=== PATIENT | female | born 1990 | race African-American/Black ===

== ENCOUNTER 2016-08-02 11:10 | Outpatient (CLI) | payer MEDICAID ==
--- NOTE | 2016-08-02 12:00 | L&D Flow Sheet ---
LD Flowsheet Datetime Report Generated by CPN: 08/02/2016 12:00 Datetime: 08/02/2016 11:36 Patient Care Comments: Pt to radiology in stable condition via wheelchair with transport (Brooke Vitrano, RN) Datetime: 08/02/2016 11:32 Uterine Activity Monitor Interventions for UA: [place] Adjusted (Brooke Vitrano, RN) Datetime: 08/02/2016 11:31 Vital Signs NBP Sys/Sue/Mean (mmHg): 116 (QS system process) : 56 (QS system process) : 79 (QS system process) Pulse: 98 (QS system process) Frequency (min): Irregular, approx q 10 min (Brooke Vitrano, RN) Pain Pain Scale: 3 (Brooke Vitrano, RN) Pain Presence: Intermittent (Brooke Vitrano, RN) Pain Type: Cramping (Brooke Vitrano, RN) Pain Location: Abdomen (Brooke Vitrano, RN) Pain Relief Measures: Comfort Measures (Brooke Vitrano, RN) Pain Coping: Talking Through Contractions (Brooke Vitrano, RN) Vaginal Exam Membrane Status: Intact (Brooke Vitrano, RN) Vaginal Bleeding: None (Brooke Vitrano, RN) Maternal Assessment Level of Consciousness: Fully Conscious (Brooke Vitrano, RN) DTR's/Clonus: DTRs 2+; No Clonus (Brooke Vitrano, RN) Headache: Temporal (Brooke Vitrano, RN) Breath Sounds, Left: Clear and Equal (Brooke Vitrano, RN) Breath Sounds, Right: Clear and Equal (Brooke Vitrano, RN) Nausea/Vomiting: Denies (Brooke Vitrano, RN) RUQ Epigastric Pain: Denies (Brooke Vitrano, RN) Datetime: 08/02/2016 11:29 Patient Care Patient Position/Activity: Left Tilt; Semi-Fowlers (Brooke Vitrano, RN) I/O Interventions: Clear Liquids Given (Brooke Vitrano, RN) Teaching Instructional Method: Verbal; Patient Instructed; Family/Support Person Instructed; Verbalized Understanding (Brooke Moody RN) Plan of Care: Plan of Care Discussed (Brooke Moody RN) Unit Routine: [place] to Room; Call [place]; Bed; Visiting Policy; Unit Personnel; Monitoring; Safety/Fall Risk Prevention; Bathroom Privileges (Brooke Moody RN)
[2016-08-02 12:30] LABS: URINE BARBITURATES SCREEN NEGATIVE; URINE METHADONE SCREEN NEGATIVE; URINE OPIATES LOW NEGATIVE; URINE PHENCYCLIDINE SCREEN NEGATIVE
[2016-08-02 12:34] LABS: APPEARANCE,URINE CLOUDY; BILIRUBIN,URINE NEGATIVE (NEGATIVE); GLUCOSE, URINE NEGATIVE (NEGATIVE); KETONES,URINE NEGATIVE (NEGATIVE); LEUKOCYTE ESTERASE,URINE LARGE (NEGATIVE); NITRITE,URINE NEGATIVE (NEGATIVE); PROTEIN,URINE 30 mg/dL (NEGATIVE); URINE SPECIFIC GRAVITY 1.026
[2016-08-02] MEDS ORDERED: RINGERS SOLUTION,LACTATED 1,500 ML IV ONE (13:11)
--- NOTE | 2016-08-02 14:00 | L&D Flow Sheet ---
LD Flowsheet Datetime Report Generated by CPN: 08/02/2016 14:00 Datetime: 08/02/2016 13:36 Monitor Interventions for FHR: Ultrasound Adjusted (Brooke Vitrano, RN) Datetime: 08/02/2016 13:34 Comments: Tracing maternal HR, movement palpable (Brooke Vitrano, RN) Datetime: 08/02/2016 13:31 NBP Sys/Sue/Mean (mmHg): 112 (QS system process) : 60 (QS system process) : 79 (QS system process) Pulse: 88 (QS system process) Datetime: 08/02/2016 13:29 Comments: Tracing maternal HR d/t pt movement (Brooke Vitrano, RN) Datetime: 08/02/2016 13:20 Patient Care Comments: GC/Chlam urine collected (Brooke Vitrano, RN) Datetime: 08/02/2016 13:18 Patient Care Comments: Wet prep collected (Brooke Heidy, RN) Datetime: 08/02/2016 13:00 IV/Blood Work: IV Started; IV Bolus Started; IV Infusing per Order; IV Bag Number @ 1 (Brooke Moody RN) Patient Care Comments: 18 G R wrist site WNL LR bolusing per order (Brooke Moody, RN) Datetime: 08/02/2016 12:55 Instructional Method: Verbal; Patient Instructed; Family/Support Person Instructed; Verbalized Understanding (Brooke Moody RN) Plan of Care: Plan of Care Discussed (Brooke Moody RN) Teaching Comments: Reviewed results and provider orders. Reviewed THC cessation and pt verbalized understanding. (Brooke Moody RN) Datetime: 08/02/2016 12:44 Communication Comments: Called Bola Lambert CNM, report given to include EGA 29.5, , pt complaints, nursing assessment, pt history, cervical length, urine results, VS, toco tracing, FHTs. Orders received for 1.5 L LR bolus x1 now, collect wet prep, collect GC/Chlamydia urine. (Brooke Moody RN) Datetime: 08/02/2016 12:31 NBP Sys/Sue/Mean (mmHg): 113 (QS system process) : 59 (QS system process) : 78 (QS system process) Pulse: 93 (QS system process) Datetime: 08/02/2016 12:02 NBP Sys/Sue/Mean (mmHg): 116 (QS system process) : 64 (QS system process) : 83 (QS system process) Pulse: 102 (QS system process) Datetime: 08/02/2016 12:00 Patient Position/Activity: Left Tilt; Semi-Fowlers (Brooke Moody RN) I/O Interventions: Clear Liquids Given (Brooke Moody RN) Patient Care Comments: Pt returned from Radiology in stable condition (Brooke Moody RN)
[2016-08-02] MEDS ORDERED: SODIUM CHLORIDE IV ONE ×2 (14:15→14:18)
[2016-08-02] MEDS ORDERED: METRONIDAZOLE IV ONE ×2 (14:15→14:18)
[2016-08-02 15:47] LABS: CHLAM PCR NOT DETECTED (NOT DETECT)
--- NOTE | 2016-08-02 16:00 | L&D Flow Sheet ---
LD Flowsheet Datetime Report Generated by CPN: 08/02/2016 16:00 Datetime: 08/02/2016 15:47 Communication Comments: Monitors removed. IV discontinued. D/C instructions given. Reviewed kick counts and instructed pt to follow up at [facility] on 3/2. (Marilynn Campa, RN) Datetime: 08/02/2016 15:45 Communication Comments: D/C order received per Dr. Angel (Marilynn Campa, RN) Datetime: 08/02/2016 15:31 NBP Sys/Sue/Mean (mmHg): 127 (QS system process) : 69 (QS system process) : 87 (QS system process) Pulse: 107 (QS system process) Medication Comments: Flagyl 500 mg/100 mL RTU 4 of 4 hung (Brooke Vitrano, RN) Datetime: 08/02/2016 15:30 Monitor Mode: External (Marilynn Campa RN) Frequency (min): occasional (Marilynn Campa RN) Quality: Mild (Marilynn Campa RN) Resting Tone (Palpate): Relaxed (Marilynn Campa RN) Monitor Mode: External US (Marilynn Campa RN) FHR Baseline Rate : 145 (Marilynn Campa RN) Variability: Moderate 6-25 bpm (Marilynn Campa RN) Accelerations: 10X10 (Marilynn Campa RN) Decelerations: None (Marilynn Campa RN) Datetime: 08/02/2016 15:15 Monitor Interventions for FHR: Ultrasound Adjusted (Brooke Vitrano, RN) Datetime: 08/02/2016 15:01 NBP Sys/Sue/Mean (mmHg): 119 (QS system process) : 61 (QS system process) : 82 (QS system process) Pulse: 106 (QS system process) Datetime: 08/02/2016 15:00 Monitor Mode: External; Palpation (Brooke Vitrano, RN) Frequency (min): Occasional (Brooke Vitrano, RN) Quality: Mild (Brooke Vitrano, RN) Duration (sec): 40-50 (Brooke Vitrano, RN) Resting Tone (Palpate): Relaxed (Brooke Vitrano, RN) Monitor Mode: External US (Brooke Vitrano, RN) FHR Baseline Rate : 140 (Brooke Vitrano, RN) Variability: Moderate 6-25 bpm (Brooke Vitrano, RN) Accelerations: 10X10 (Brooke Vitrano, RN) Decelerations: None (Brooke Vitrano, RN) Datetime: 08/02/2016 14:36 NBP Sys/Sue/Mean (mmHg): 132 (QS system process) : 69 (QS system process) : 91 (QS system process) Pulse: 92 (QS system process) Datetime: 08/02/2016 14:32 I/O Interventions: Up to BR (Brooke Vitrano, RN) Datetime: 08/02/2016 14:31 NBP Sys/Sue/Mean (mmHg): 97 (QS system process) : 54 (QS system process) : 68 (QS system process) Pulse: 90 (QS system process) Datetime: 08/02/2016 14:30 Monitor Mode: External (Brooke Vitrano, RN) Frequency (min): Occasional (Brokoe Vitrano, RN) Quality: Mild (Brooke Vitrano, RN) Duration (sec): 50-60 (Brooke Vitrano, RN) Resting Tone (Palpate): Relaxed (Brooke Vitrano, RN) Monitor Mode: External US (Brooke Vitrano, RN) FHR Baseline Rate : 140 (Brooke Vitrano, RN) Variability: Moderate 6-25 bpm (Brooke Vitrano, RN) Accelerations: None (Brooke Vitrano, RN) Decelerations: None (Brooke Vitrano, RN) Datetime: 08/02/2016 14:22 Medication Comments: Flagyl 500mg/100 mL hung; RTU 1 of 4 for Flagyl 2000 mg (Brooke Vitrano, RN) Datetime: 08/02/2016 14:19 Monitor Interventions for FHR: Ultrasound Adjusted (Brooke Vitrano, RN) Instructional Method: Verbal; Patient Instructed; Family/Support Person Instructed; Verbalized Understanding (Brooke Vitrano, RN) Teaching Comments: Reviewed provider orders and lab results. Questions answered. Pt verbalized understanding (Brooke Vitrano, RN) Datetime: 08/02/2016 14:18 IV/Blood Work: New IV Bag Hung; IV Bag Number @ 2 (Brooke Vitrano, RN) Patient Care Comments: Infusing per order (Brooke Vitrano, RN) Datetime: 08/02/2016 14:15 Communication Comments: Reviewed positive Trichomonas results with Dr. Ortiz. Orders received to administer Flagyl 2 gm IV x1 now. (Brooke Vitrano, RN) Datetime: 08/02/2016 14:01 NBP Sys/Sue/Mean (mmHg): 113 (QS system process) : 68 (QS system process) : 86 (QS system process) Pulse: 100 (QS system process) Datetime: 08/02/2016 14:00 Monitor Mode: External; Palpation (Brooke Vitrano, RN) Frequency (min): Occasional (Brooke Vitrano, RN) Quality: Mild (Brooke Vitrano, RN) Duration (sec): 50-60 (Brooke Vitrano, RN) Resting Tone (Palpate): Relaxed (Brooke Moody RN) Monitor Mode: External US (Brooke Moody RN) FHR Baseline Rate : 140 (Brooke Moody RN) Variability: Moderate 6-25 bpm (Brooke Moody RN) Accelerations: 10X10 (Brooke Moody RN) Decelerations: None (Brooke Moody RN)
== END 2016-08-02 15:56 | disposition home or self-care (01) ==
LOC: LC 11:10
PROVIDERS: ATTEND Obstetrics & Gynecology
PROC: 4A1HXCZ Monitoring of Products of Conception, Cardiac Rate, External Approach (ICD-10-PCS; principal; 2016-08-02)
DX: O98.813 Other maternal infectious and parasitic diseases complicating pregnancy, third trimester (principal); A59.9 Trichomoniasis, unspecified; Z3A.29 29 weeks gestation of pregnancy
CPT/HCPCS: 76815; 80307; 81001; 87210; 87491; 87591

== ENCOUNTER 2016-08-07 22:03 | Outpatient (CLI) | payer MEDICAID ==
[2016-08-07] MEDS ORDERED: HYDROXYZINE PAMOATE 50 MG CAPSULE PO ONE (22:42)
[2016-08-07] MEDS ORDERED: RINGERS SOLUTION,LACTATED 1,000 ML IV ONE (22:43)
[2016-08-07] MEDS ORDERED: HYDROXYZINE PAMOATE 50 MG CAPSULE ONE (22:43)
[2016-08-08 00:26] LABS: APPEARANCE,URINE SLIGHTLY-CLOUDY; BILIRUBIN,URINE NEGATIVE (NEGATIVE); GLUCOSE, URINE NEGATIVE (NEGATIVE); KETONES,URINE NEGATIVE (NEGATIVE); LEUKOCYTE ESTERASE,URINE TRACE (NEGATIVE); NITRITE,URINE NEGATIVE (NEGATIVE); PROTEIN,URINE NEGATIVE (NEGATIVE); URINE SPECIFIC GRAVITY 1.016; UROBILINOGEN,URINE NEGATIVE mg/dL (<2.0)
[2016-08-08 00:43] LABS: URINE BARBITURATES SCREEN NEGATIVE; URINE METHADONE SCREEN NEGATIVE; URINE OPIATES LOW NEGATIVE; URINE PHENCYCLIDINE SCREEN NEGATIVE
--- NOTE | 2016-08-08 04:46 | L&D General Admission ---
General Admit Datetime Report Generated by CPN: 08/08/2016 04:45 INFORMATION Patient Age: 23 (04/04/2012 09:53:QS system process) EDC: 10/13/2016 00:00 (08/02/2016 11:20:Brooke Moody RN) : 3 (08/02/2016 11:20:Brooke Moody RN) Para: 2 (08/02/2016 15:57:Marilynn Campa RN) Para: 2 (08/02/2016 11:20:Brooke Moody RN) Term: 2 (08/02/2016 11:20:Brooke Moody RN) : 0 (08/02/2016 11:20:Brooke Moody RN) Spontaneous Abortions: 0 (08/02/2016 11:20:Brooke Moody RN) Induced Abortions: 0 (08/02/2016 11:20:Brooke Moody RN) Livin (08/02/2016 11:20:Brooke Moody RN) Cesareans: 0 (08/02/2016 11:20:Brooke Moody RN) VBACs: 0 (08/02/2016 11:20:Brooke Moody RN) Ectopic: 0 (08/02/2016 11:20:Brooke Moody RN) Multiple Births: 0 (08/02/2016 11:20:Brooke Moody RN) Baby, Number in Womb: 1 (08/02/2016 15:57:Marilynn Campa RN) Baby, Number in Womb: 1 (08/02/2016 11:20:Brooke Moody RN) CARE Primary Mud Boss: [facility] (08/02/2016 11:20:Brooke Moody RN) Month of 1st Visit: 04/2016 (08/02/2016 11:20:Brooke Moody RN) Adequate Care: No (08/02/2016 11:20:Brooke Moody RN) Prepregnancy Weight (lb): 265 (08/02/2016 11:20:Brooke Moody RN) Prepregnancy Weight (kg): 120.5 (08/02/2016 11:20:QS system process) Height (in): 64 (08/02/2016 11:53:QS system process) Height (in): 66 (08/02/2016 11:10:QS system process) Height (in): 66 (02/18/2016 11:34:QS system process) Height (in): 66 (12/17/2015 15:34:QS system process) Height (in): 66 (10/21/2015 13:10:QS system process) Height (in): 66 (04/04/2014 09:53:QS system process) ALLERGIES Medication Allergy: No (08/02/2016 11:20:Brooke Moody RN) Medication Allergies: No Known Allergies (08/02/2016) (08/02/2016 11:52:QS system process) Medication Allergies: No Known Allergies (10/20/2015) (10/21/2015 13:10:QS system process) Medication Allergies: No Known Allergies (01/15/2014) (04/04/2014 09:53:QS system process) Latex Allergy: No Latex Allergies (08/02/2016 11:20:Brooke Moody RN) Food Allergies: N/A (08/02/2016 11:20:Brooke Moody RN) Environmental Allergies: N/A (08/02/2016 11:20:Brooke Moody RN) COMMUNICATION Primary Language: Kosovan (08/02/2016 11:20:Brooke Moody RN) Medical Tx Preferred Language: Kosovan (08/02/2016 11:20:Brooke Moody RN) DEMOGRAPHICS Address: [address] [place] [address] (08/02/2016 11:10:QS system process) Address: [address] [place] [address] (12/17/2015 15:34:QS system process) Address: [address] [place] [address] (04/04/2014 09:53:QS system process) Zipcode: [facility] (04/04/2014 09:53:QS system process) Home (08/02/2016 11:10:QS system process) Home (04/04/2014 09:53:QS system process) SSN: [id number] (04/04/2014 09:53:QS system process) Next of Kin Name: SHARAN ARTEAGA (08/02/2016 11:15:QS system process) Next of Kin Name: SHARAN ROGERS (04/04/2014 09:53:QS system process) Next of Kin (04/04/2014 09:53:QS system process) Next of Kin Relationship: MO (04/04/2014 09:53:QS system process) Date of : 1990 (04/04/2014 09:53:QS system process) Marital Status: Single (04/04/2014 09:53:QS system process) Sex: Female (04/04/2014 09:53:QS system process) Race: (04/04/2014 09:53:QS system process) Ethnicity: Non- or (10/21/2015 13:10:QS system process) Latter Day: Orthodox (04/04/2014 09:53:QS system process) DRUG AND ALCOHOL USE Alcohol: No (08/02/2016 11:20:Carmen Harrison RN) Cigarettes: Never Smoker. [id number] (08/02/2016 11:20:Carmen Harrison RN) Marijuana: No (08/02/2016 11:20:Carmen Harrison RN) Marijuana Comments: pt denies use. pt states that she is only around people who use. 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[facility] [employer] (08/02/2016 11:20:Carmen Harrison RN) Pain Management Plans: None (08/02/2016 11:20:Carmen Harrison RN) Plans for Labor and Delivery: None (08/02/2016 11:20:Carmen Harrison RN) Support Person: Sharan (08/02/2016 11:20:Carmen Harrison RN) Support Person Relationship: Mother (08/02/2016 11:20:Carmen Harrison RN) LIVING SITUATION/DISCHARGE PLAN Living Arrangements: House (08/02/2016 11:20:Carmen Hrarison RN) Adequate Access to:: Electric; Heat; Refrigeration; Plumbing/Running water; Phone; Transportation (08/02/2016 11:20:Carmen Harrison RN) WIC Program: Yes (08/02/2016 11:20:Carmen Harrison RN) Discharge Jump Roll Operator Person: Sharan (08/02/2016 11:20:Carmen Harrison RN) Person to Help after Discharge: Sharan (08/02/2016 11:20:Carmen Harrison RN) Currently Using Commun Resources: No (08/02/2016 11:20:Carmen Harrison RN) Outside Agency/In Process Inspector: No (08/02/2016 11:20:Carmen Harrison RN) Car Seat for Discharge: No (08/02/2016 11:20:Carmen Harrison RN) Adoption Requested: No (08/02/2016 11:20:Carmen Harrison RN) Pt Contact w/infant Post : N/A (08/02/2016 11:20:Carmen Harrison RN) LABS Blood Type: O Positive (08/02/2016 11:20:Brooke Moody RN) Antibody Screen: Negative (08/02/2016 11:20:Brooke Moody RN) Rho(G) this : Not Applicable (08/02/2016 11:20:Brooke Moody RN) Hemoglobin: 11.0 L (03/04/2016 11:16:QS system process) Hematocrit: 32.7 L (03/04/2016 11:16:QS system process) MCV: 83 (03/04/2016 11:16:QS system process) Gonorrhea: Negative (08/02/2016 11:20:Carmen Harrison RN) Chlamydia: Negative (08/02/2016 11:20:Carmen Harrison RN) RPR/VDRL: Nonreactive (08/02/2016 11:20:Brooke Moody RN) HIV Exposure Test: Negative (08/02/2016 11:20:Brooke Moody RN) Hepatitis B: Negative (08/02/2016 11:20:Brooke Moody RN) Rubella: Immune (08/18/2015 10:17:Brooke Moody RN) Rubella Titer: 39.70 (08/18/2015 10:17:QS system process) OB/PREVIOUS HISTORY History of Previous : No (08/02/2016 11:20:Brooke Moody RN) History of Gestational Diabetes: No (08/02/2016 11:20:Brooke Moody RN) History of PIH: No (08/02/2016 11:20:Brooke Moody RN) History of Incompetent Cervix: No (08/02/2016 11:20:Brooke Moody RN) History of Placenta Previa/Abrup: No (08/02/2016 11:20:Brooke Moody RN) History of Macrosomia: No (08/02/2016 11:20:Brooke Moody RN) History of IUGR: No (08/02/2016 11:20:Brooke Moody RN) History of Hemorrhage: No (08/02/2016 11:20:Brooke Moody RN) History of Loss/Stillborn: No (08/02/2016 11:20:Brooke Moody RN) History of : No (08/02/2016 11:20:Brooke Moody RN) History of D (Rh) Sensitization: No (08/02/2016 11:20:Brooke Moody RN) History Recurrent Loss/Stillborn: No (08/02/2016 11:20:Brooke Moody RN) History Depression/PP Depression: Yes (08/02/2016 11:20:Brooke Moody RN) History of Uterine Anomaly/SYO: No (08/02/2016 11:20:Brooke Moody RN) History of Infertility: No (08/02/2016 11:20:Brooke Moody RN) History of ART Treatment: No (08/02/2016 11:20:Brooke Moody RN) History of SOY: No (08/02/2016 11:20:Brooke Moody RN) Comments Obstetrical History: G1: 2011 38 week baby boy, 10-15 hour labor, 6 lb 5 oz G2: 2012 40.5 week baby girl, 9 hours labor, 7 lb 3 oz G3: Current, Late PNC 14 weeks History depression (08/02/2016 11:20:Brooke Moody RN) MEDICAL HISTORY Med Hx Diabetes: No (08/02/2016 11:20:Brooke Moody RN) Med Hx Hypertension: No (08/02/2016 11:20:Brooke Moody RN) Med Hx Heart Disease: No (08/02/2016 11:20:Brooke Moody RN) Med Hx Autoimmune Disorder: Yes (08/02/2016 11:20:Brooke Moody RN) Med Hx Kidney Disease/UTI: No (08/02/2016 11:20:Brooke Moody RN) Med Hx Neurologic/Epilepsy: No (08/02/2016 11:20:Brooke Moody RN) Med Hx Psychiatric Disorders: Yes (08/02/2016 11:20:Brooke Moody RN) Med Hx Hepatitis/Liver Disease: No (08/02/2016 11:20:Brooke Moody RN) Med Hx Varicosities/Phlebitis: No (08/02/2016 11:20:Brooke Moody RN) Med Hx Thyroid Dysfunction: No (08/02/2016 11:20:Brooke Moody RN) Med Hx Trauma/Violence: No (08/02/2016 11:20:Brooke Moody RN) Med Hx Blood Transfusion: Yes (08/02/2016 11:20:Brooke Moody RN) Med Hx Pulmonary (Asthma,TB): No (08/02/2016 11:20:Brooke Moody RN) Med Hx Breast: No (08/02/2016 11:20:Brooke Moody RN) Med Hx REINSURANCE CLAIMS ANALYST Surgery: No (08/02/2016 11:20:Brooke Moody RN) Med Hx Hospitalization/Surgery: Yes (08/02/2016 11:20:Brooke Moody RN) Med Hx Anesthetic Complications: No (08/02/2016 11:20:Brooke Moody RN) Med Hx Abnormal Pap Smear: No (08/02/2016 11:20:Brooke Moody RN) Other Medical Diseases: No (08/02/2016 11:20:Brooke Moody RN) Med Hx Significant Family Hx: No (08/02/2016 11:20:Brooke Moody RN) Details of Med/Surg Hx: UTI: Ages 5 and 9 Psychiatric/Depression: History depression, Homicidal ideation, Suicidal ideation Blood Transfusion: At 1993 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 (08/02/2016 11:20:Brooke Moody RN) INFECTIOUS HISTORY Inf Hx Gonorrhea: No (08/02/2016 11:20:Brooke Moody RN) Inf Hx Chlamydia: Yes (08/02/2016 11:20:Brooke Moody RN) Inf Hx Syphilis: No (08/02/2016 11:20:Brooke Moody RN) Inf Hx HIV/AIDS: No (08/02/2016 11:20:Brooke Moody RN) Inf Hx Human Papilloma Virus: No (08/02/2016 11:20:Brooke Moody RN) Inf Hx Pt/Partner Genital Herpes: No (08/02/2016 11:20:Brooke Moody RN) Inf Hx Tuberculosis/Exposure: No (08/02/2016 11:20:Brooke Moody RN) Inf Hx Hepatitis B,C: No (08/02/2016 11:20:Brooke Moody RN) Inf Hx Rash or Viral Illness: No (08/02/2016 11:20:Brooke Moody RN) Details of Infectious Hx: Chlamydia: Positive with current , HECTOR negative (08/02/2016 11:20:Brooke Moody RN) GENETIC HISTORY Gen Hx Age >=35 at THOMAS: No (08/02/2016 11:20:Brooke Moody RN) Gen Hx Thalassemia: No (08/02/2016 11:20:Brooke Moody RN) Gen Hx Congenital Heart Defect: No (08/02/2016 11:20:Brooke Moody RN) Gen Hx Neural Tube Defect: No (08/02/2016 11:20:Brooke Moody RN) Gen Hx Down's Syndrome: No (08/02/2016 11:20:Brooke Moody RN) Gen Hx Negro-Sachs: No (08/02/2016 11:20:Brooke Moody RN) Gen Hx Carolann: No (08/02/2016 11:20:Brooke Moody RN) Gen Hx Familial Dysautonomia: No (08/02/2016 11:20:Brooke Moody RN) Gen Hx Sickle Cell Disease/Trait: Yes (08/02/2016 11:20:Brooke Moody RN) Gen Hx Hemophilia/Blood Disorder: No (08/02/2016 11:20:Brooke Moody RN) Gen Hx Muscular Dystrophy: No (08/02/2016 11:20:Brooke Moody RN) Gen Hx Cystic Fibrosis: No (08/02/2016 11:20:Brooke Moody RN) Gen Hx Huntingtons Chorea: No (08/02/2016 11:20:Brooke Moody RN) Gen Hx Mental Retardation/Autism: Yes (08/02/2016 11:20:Brooke Moody RN) Gen Hx Tested for Fragile X: No (08/02/2016 11:20:Brooke Moody RN) Gen Hx Other Inher/Chromosomal: No (08/02/2016 11:20:Brooke Moody RN) Gen Hx Maternal Metabolic DO: No (08/02/2016 11:20:Brooke Moody RN) Gen Hx Pt Father or FOB Defect: No (08/02/2016 11:20:Brooke Moody RN) Gen Hx Other Genetic History: No (08/02/2016 11:20:Brooke Moody RN) Gen Hx Drugs/Meds since LMP: No (08/02/2016 11:20:rBooke Moody RN) Details of Genetic History: Sickle Cell: Carries trait Mental Retardation/Mental Illness: Family history of both (08/02/2016 11:20:Brooke Moody RN)
--- NOTE | 2016-08-08 04:46 | L&D Admission Assessment ---
LD ADM ASMT Datetime Report Generated by CPN: 08/08/2016 04:45 Assessment Type: Triage (08/07/2016 22:16:Carmen Harrison RN) Pain Scale: 5 (08/07/2016 22:16:Carmen Harrison RN) Pain Presence: Intermittent (08/07/2016 22:16:Carmen Harrison RN) Pain Type: Contraction (08/07/2016 22:16:Carmen Harrison RN) Pain Location: Abdomen (08/07/2016 22:16:Carmen Harrison RN) Pain Related to Contraction: Yes (08/07/2016 22:16:Carmen Harrison RN) Pain Comments: pt unaware that contraction occured (08/07/2016 23:37:Carmen Harrison RN) Frequency (min): none (08/08/2016 00:44:Carmen Harrison RN) Frequency (min): irregular (08/08/2016 00:30:Carmen Harrison RN) Frequency (min): irregular (08/08/2016 00:00:Carmen Harrison RN) Frequency (min): 3-4 (08/07/2016 23:00:Carmen Harrison RN) Frequency (min): 3-4 (08/07/2016 22:30:Carmen Harrison RN) Frequency (min): 2-3 (08/07/2016 22:16:Carmen Harrison RN) Duration (sec): 50-70 (08/08/2016 00:30:Carmen Harrison RN) Duration (sec): 50-90 (08/08/2016 00:00:Carmen Harrison RN) Duration (sec): 50-70 (08/07/2016 23:00:Carmen Harrison RN) Duration (sec): 50-70 (08/07/2016 22:30:Carmen Harrison RN) Quality: Mild (08/08/2016 00:30:Carmen Harrison RN) Quality: Mild (08/08/2016 00:00:Carmen Harrison RN) Quality: Mild (08/07/2016 23:00:Carmen Harrison RN) Quality: Mild (08/07/2016 22:30:Carmen Harrison RN) Pattern: Normal: <= 5 Contractions in 10 Minutes (08/08/2016 00:30:Carmen Harrison RN) Pattern: Normal: <= 5 Contractions in 10 Minutes (08/08/2016 00:00:Carmen Harrison RN) Pattern: Normal: <= 5 Contractions in 10 Minutes (08/07/2016 23:00:Carmen Harrison RN) Pattern: Normal: <= 5 Contractions in 10 Minutes (08/07/2016 22:30:Carmen Harrison RN) Resting Tone [place]: Relaxed (08/08/2016 00:30:Carmen Harrison RN) Resting Tone [place]: Relaxed (08/08/2016 00:00:Carmen Harrison RN) Resting Tone [place]: Relaxed (08/07/2016 23:00:Carmen Harrison RN) Resting Tone [place]: Relaxed (08/07/2016 22:30:Carmen Harrison RN) Contraction Comments: uterine irritability (08/08/2016 00:44:Carmen Harrison RN) Membranes Status: Intact (08/07/2016 22:16:Carmen Harrison RN) Level of Consciousness: Fully Conscious (08/07/2016 22:16:Carmen Harrison RN) DTR's/Clonus: DTRs 1+ (08/07/2016 22:16:Carmen Harrison RN) Headache: Frontal (Annotations: pt c/o of h/a through ) (08/07/2016 22:16:Carmen Harrison RN) Dizziness: No (08/07/2016 22:16:Carmen Harrison RN) Blurred Vision: Yes (Annotations: started today) (08/07/2016 22:16:Carmen Harrison RN) Extremity Numbness/Tingling : None (08/07/2016 22:16:Carmen Harrison RN) Extremity Movement: Full Range of Motion (08/07/2016 22:16:Carmen Harrison RN) Heart Rhythm: Regular (08/07/2016 22:16:Carmen Harrison RN) Nailbeds: [place] (08/07/2016 22:16:Carmen Harrison RN) Capillary Refill: Less than 3 Seconds (08/07/2016 22:16:Carmen Harrison RN) Lower Extremities Edema Degree: None (08/07/2016 22:16:Carmen Harrison RN) Upper Extremities Edema: None (08/07/2016 22:16:Carmen Harrison RN) Upper Extremities Edema Degree: None (08/07/2016 22:16:Carmen Harrison RN) Facial Edema: None (08/07/2016 22:16:Carmen Harrison RN) Renee's Sign Left Leg: Negative (08/07/2016 22:16:Carmen Harrison RN) Renee's Sign Right Leg: Negative (08/07/2016 22:16:Carmen Harrison RN) DVT Risk Age: Age less than 41 years (08/07/2016 22:16:Carmen Harrison RN) DVT Risk BMI: BMI<31 (08/07/2016 22:16:Carmen Harrison RN) DVT Risk Surgery: None Applicable (08/07/2016 22:16:Carmen Harrison RN) DVT Risk Other: None Applicable (08/07/2016 22:16:Carmen Harrison RN) DVT Risk Total: 0 (08/07/2016 22:16:QS system process) DVT Risk Text: Low Risk (<10%) No specific measures, early ambulation (08/07/2016 22:16:QS system process) Respiratory Effort: Unlabored (08/07/2016 22:16:Carmen Harrison RN) Breath Sounds, Left: Clear and Equal (08/07/2016 22:16:Carmen Harrison RN) Breath Sounds, Right: Clear and Equal (08/07/2016 22:16:Carmen Harrison RN) Cough Productivity: None (08/07/2016 22:16:Carmen Harrison RN) Nausea/Vomiting: Present (Annotations: with ctx) (08/07/2016 22:16:Carmen Harrison RN) Bowel Sounds: Normoactive (08/07/2016 22:16:Carmen Harrison RN) Bowel Patterns: Soft, Formed Stool (08/07/2016 22:16:Carmen Harrison RN) Hemorrhoids: Present (08/07/2016 22:16:Carmen Harrison RN) Diet Type: Regular diet (08/07/2016 22:16:Carmen Harrison RN) Last Meal: 08/07/2016 15:00 (08/07/2016 22:16:Carmen Harrison RN) Bladder: Nondistended (08/07/2016 22:16:Carmen Harrison RN) Frequency of Urination: No (08/07/2016 22:16:Carmen Harrison RN) Urination Burning: No (08/07/2016 22:16:Carmen Harrison RN) CVA Tenderness: No (08/07/2016 22:16:Carmen Harrison RN) Vaginal Bleeding: None (08/07/2016 22:16:Carmen Harrison RN) Vaginal Discharge Amount: None (08/07/2016 22:16:Carmen Harrison RN) Vaginal Discharge Color: N/A (08/07/2016 22:16:Carmen Harrison RN) Vaginal Discharge Character: None (08/07/2016 22:16:Carmen Harrison RN) Skin Color: Normal for Race (08/07/2016 22:16:Carmen Harrison RN) Skin Temperature: Warm (08/07/2016 22:16:Carmen Harrison RN) Skin Moisture: Dry (08/07/2016 22:16:Carmen Harrison RN) [place] Scale Sensory Perception: No Impairment- Responds to verbal commands. Has no sensory deficit which would limit ability to feel or voice pain or discomfort (08/07/2016 22:16:Carmen Harrison RN) Neto Scale Moisture: Rarely Moist- Skin is usually dry. Linen only requires changing at routine intervals (08/07/2016 22:16:Carmen Harrison RN) Neto Scale Activity: Walks Frequently- Walks outside the room at least twice a day and inside room at least every 2 hours during the day. (08/07/2016 22:16:Carmen Harrison RN) Neto Scale Mobility: No Limitations- Makes major and frequent changes in position without assistance (08/07/2016 22:16:Carmen Harrison RN) Neto Scale Nutrition: Excellent- Eats most of every meal. Never refuses a meal. Usually eats a total of 4 or more servings of meat and dairy products. Occasionally eats between meals. Does not require supplementation (08/07/2016 22:16:Carmen Harrison RN) Neto Scale Friction and Shear: No Apparent Problem- Moves in bed and in chair independently and has sufficient muscle strength to lift up completely during move. Maintains good position in bed or chair at all times (08/07/2016 22:16:Carmen Harrison RN) Neto Scale Total: 23 (08/07/2016 22:16:QS system process) Neto Scale Risk: No Risk of Pressure Ulcer Noted at this Time (08/07/2016 22:16:QS system process) Family Support: Significant Other supportive, at bedside frequently; Family supportive (08/07/2016 22:16:Carmen Harrison RN) Emotional State: Calm/Relaxed (08/07/2016 22:16:Carmen Harrison RN) Call [place] Within Reach: Yes (08/07/2016 22:16:Carmen Harrison RN) Side Rails Up: Yes (08/07/2016 22:16:Carmen Harrison RN) Bed Wheels Locked: Yes (08/07/2016 22:16:Carmen Harrison RN) Arm Bands Present: Yes (08/07/2016 22:16:Carmen Harrison RN) Isolation: [place] (08/07/2016 22:16:Carmen Harrison RN) Fall Risk History of Falling: (0) No (08/07/2016 22:16:Carmen Harrison RN) Fall Risk Secondary Diagnosis: (0) No (08/07/2016 22:16:Carmen Harrison RN) Fall Risk Ambulatory Aid: (0) None/Bedrest/Wheelchair/Nurse Assist (08/07/2016 22:16:Carmen Harrison RN) Fall Risk IV Therapy: (0) No (08/07/2016 22:16:Carmen Harrison RN) Fall Risk Gait: (0) Normal/Bedrest/Immobile (08/07/2016 22:16:Carmen Harrison RN) Fall Risk Mental Status: (0) Oriented to Own Ability (08/07/2016 22:16:Carmen Harrison RN) Fall Risk Score: 0 (08/07/2016 22:16:QS system process) Fall Risk Score Definition: No Risk: No action required (08/07/2016 22:16:QS system process) Recent Exp Communicable Disease: No (08/07/2016 22:16:Carmen Harrison RN) Cough or Fever: No (08/07/2016 22:16:Carmen Harrison RN) Foreign Travel Past 10 Days: No (08/07/2016 22:16:Carmen Harrison RN) Open Wounds or Sores: No (08/07/2016 22:16:Carmen Harrison RN) Prior Antibiotic Resistance Tx: No (08/07/2016 22:16:Carmen Harrison RN) Cultures Obtained: Not Applicable (08/07/2016 22:16:Carmen Harrison RN) Isolation Initiated: No (08/07/2016 22:16:Carmen Harrison RN) Pt/Family Education: Not Applicable (08/07/2016 22:16:Carmen Harrison RN) FHR Baseline Rate (bpm) Baby A: 140 (08/08/2016 00:44:Carmen Harrison RN) FHR Baseline Rate (bpm) Baby A: 140 (08/08/2016 00:30:Carmen Harrison RN) FHR Baseline Rate (bpm) Baby A: 140 (08/08/2016 00:00:Carmen Harrison RN) FHR Baseline Rate (bpm) Baby A: 140 (08/07/2016 23:00:Carmen Harrison RN) FHR Baseline Rate (bpm) Baby A: 140 (08/07/2016 22:30:Carmen Harrison RN) Variability Baby A: Moderate 6-25 bpm (08/08/2016 00:44:Carmen Harrison RN) Variability Baby A: Moderate 6-25 bpm (08/08/2016 00:30:Carmen Harrison RN) Variability Baby A: Moderate 6-25 bpm (08/08/2016 00:00:Carmen Harrison RN) Variability Baby A: Moderate 6-25 bpm (08/07/2016 23:00:Carmen Harrison RN) Variability Baby A: Moderate 6-25 bpm (08/07/2016 22:30:Carmen Harrison RN) Accelerations Baby A: 10X10 (08/08/2016 00:44:Carmen Harrison RN) Accelerations Baby A: 10X10 (08/08/2016 00:30:Carmen Harrison RN) Accelerations Baby A: 15X15 (08/08/2016 00:00:Carmen Harrison RN) Accelerations Baby A: 10X10 (08/07/2016 23:00:Carmen Harrison RN) Decelerations Baby A: None (08/08/2016 00:44:Carmen Harrison RN) Decelerations Baby A: None (08/08/2016 00:30:Carmen Harrison RN) Decelerations Baby A: None (08/08/2016 00:00:Carmen Harrison RN) Decelerations Baby A: None (08/07/2016 23:00:Carmen Harrison RN) Decelerations Baby A: None (08/07/2016 22:30:Carmen Harrison RN)
--- NOTE | 2016-08-08 04:46 | L&D Discharge Summary ---
OB Discharge Summary Datetime Report Generated by CPN: 08/08/2016 04:45 DISCHARGE DIAGNOSIS Diagnosis/Symptoms: False Labor Diagnoses/Symptoms Other: Trichomoniasis Gestation: 30.3 Number of Babies in Womb: 1 Parity: 2 DIET/ACTIVITY/RESTRICTIONS Diet: Regular Activity: Normal Activity TEACHING/INSTRUCTIONS/REFERRALS Instructions Given To: PT/family Instructions Understood: Patient Verbalized Understanding; Support Person Verbalized Understanding Referrals: None Educational Materials- Other: Kick Counts, Trichomoniasis DISCHARGE INFORMATION Discharged AMA: No Discharge Date/Time: 08/02/2016 15:56 Discharged To: Home Discharge Provider Name: Dr Ortiz Accompanied By: family Discharge Method: Ambulatory Condition: Stable FOLLOW UP INFORMATION Follow Up With: [facility] Follow Up On: 3-5 Days Follow Up Phone Number: [facility] -
--- NOTE | 2016-08-08 04:46 | L&D Current Admission ---
Current Admit Datetime Report Generated by CPN: 08/08/2016 04:45 ADMISSION INFORMATION Chief Complaint: Contractions (08/07/2016 22:16:Carmen Harrison RN) Chief Complaint: Contractions; Uterine Cramping (08/02/2016 11:31:Brooke Moody RN)
--- NOTE | 2016-08-08 04:46 | L&D Flow Sheet ---
LD Flowsheet Datetime Report Generated by CPN: 08/08/2016 04:45 Datetime: 08/08/2016 00:50 Additional Nursing Comments: pt left floor via wheelchair (Carmen Harrison, AYE) Datetime: 08/08/2016 00:44 Monitor Mode: External; Palpation (Carmen Harrison RN) Frequency (min): none (Carmen Harrison RN) Contraction Comments: uterine irritability (Carmen Harrison RN) Monitor Mode: External US (Cramen Chalman, RN) FHR Baseline Rate : 140 (Carmen Chalman, RN) FHR Baseline Changes: No Baseline Change (Carmen Chalman, RN) Variability: Moderate 6-25 bpm (Carmen Chalman, RN) Accelerations: 10X10 (Carmen Chalman, RN) Decelerations: None (Carmen Chalman, RN) Datetime: 08/08/2016 00:30 Monitor Mode: External; Palpation (Carmen Chalman, RN) Frequency (min): irregular (Carmen Chalman, RN) Quality: Mild (Carmen Chalman, RN) Duration (sec): 50-70 (Carmen Chalman, RN) Pattern: Normal: <= 5 Contractions in 10 Minutes (Carmen Chalman, RN) Resting Tone (Palpate): Relaxed (Carmen Chalman, RN) Monitor Mode: External US (Carmen Chalman, RN) FHR Baseline Rate : 140 (Carmen Chalman, RN) FHR Baseline Changes: No Baseline Change (Carmen Chalman, RN) Variability: Moderate 6-25 bpm (Carmen Chalman, RN) Accelerations: 10X10 (Carmen Chalman, RN) Decelerations: None (Carmen Chalman, RN) Datetime: 08/08/2016 00:00 Monitor Mode: External; Palpation (Carmen Chalman, RN) Frequency (min): irregular (Carmen Victorinaman, RN) Quality: Mild (Carmen Chalman, RN) Duration (sec): 50-90 (Carmen Chalman, RN) Pattern: Normal: <= 5 Contractions in 10 Minutes (Carmen Chalman, RN) Resting Tone (Palpate): Relaxed (Carmen Victorinaman, RN) Monitor Mode: External US (Carmen Chalman, RN) FHR Baseline Rate : 140 (Carmen Victorinaman, RN) FHR Baseline Changes: No Baseline Change (Carmen Victorinaman, RN) Variability: Moderate 6-25 bpm (Carmen Chalman, RN) Accelerations: 15X15 (Carmen Chalman, RN) Decelerations: None (Carmen Chalman, RN) Datetime: 08/07/2016 23:56 Patient Care Comments: report called to Dr. Ortiz. provider aware of u/s results. per provider pt ok to be d/c home with education on pre term labor precautions and kick counts (Carmen Chalman, RN) Datetime: 08/07/2016 23:48 Additional Nursing Comments: u/s shows that c/l is 3.3 cm and closed (Carmen Chalman, RN) Datetime: 08/07/2016 23:42 NBP Sys/Sue/Mean (mmHg): 119 (QS system process) : 55 (QS system process) : 79 (QS system process) Pulse: 98 (QS system process) Datetime: 08/07/2016 23:37 Pain Assessment Comments: pt unaware that contraction occured (Carmen Chalman, RN) Datetime: 08/07/2016 23:36 NBP Sys/Sue/Mean (mmHg): 124 (QS system process) : 63 (QS system process) : 88 (QS system process) Pulse: 96 (QS system process) Datetime: 08/07/2016 23:33 Patient Care Comments: pt educated on the importance of both sexual partners being treated if an STD is present. pt also encouraged to quit using THC. pt instructed to drink more fluids to keep hydrated to prevent pre term contractions. pt verbalized understanding and agreed to POC (Carmen Harrison RN) Datetime: 08/07/2016 23:09 Patient Care Comments: pt left room for u/s (Carmen Harrison, RN) Datetime: 08/07/2016 23:00 Monitor Mode: External; Palpation (Carmen Harrison RN) Frequency (min): 3-4 (Carmen Harrison, RN) Quality: Mild (Carmen Victorinaman, RN) Duration (sec): 50-70 (Carmen Christy, RN) Pattern: Normal: <= 5 Contractions in 10 Minutes (Carmen Chalman, RN) Resting Tone (Palpate): Relaxed (Carmen Chalman, RN) Monitor Mode: External US (Carmen Harrison, RN) FHR Baseline Rate : 140 (Carmen Christy, RN) FHR Baseline Changes: No Baseline Change (Carmen Chalman, RN) Variability: Moderate 6-25 bpm (Carmen Chalman, RN) Accelerations: 10X10 (Carmen Victorinaman, RN) Decelerations: None (Carmen Victorinaman, RN) Datetime: 08/07/2016 22:57 NBP Sys/Sue/Mean (mmHg): 130 (QS system process) : 63 (QS system process) : 90 (QS system process) Pulse: 94 (QS system process) Datetime: 08/07/2016 22:55 Medication Comments: Vistaril 50 mg PO (Carmen Harrison RN) IV/Blood Work: IV Started; IV Infusing per Order (Carmen Harrison RN) Datetime: 08/07/2016 22:35 Additional Nursing Comments: report called to Dr. Ortiz. provider aware of pt complaint, uc tracing, fhr and nursing assessment. Per provider pt to have IV LR bolus, vistaril 50 mg po and u/s for cervical length. (Carmen Harrison RN) Datetime: 08/07/2016 22:30 Monitor Mode: External; Palpation (Carmen Chalman, RN) Frequency (min): 3-4 (Carmen Chalman, RN) Quality: Mild (Carmen Chalman, RN) Duration (sec): 50-70 (Carmen Chalman, RN) Pattern: Normal: <= 5 Contractions in 10 Minutes (Carmen Chalman, RN) Resting Tone (Palpate): Relaxed (Carmen Chalman, RN) Monitor Mode: External US (Carmen Chalman, RN) FHR Baseline Rate : 140 (Carmen Chalman, RN) FHR Baseline Changes: No Baseline Change (Carmen Chalman, RN) Variability: Moderate 6-25 bpm (Carmen Chalman, RN) Decelerations: None (Carmen Chalman, RN) Datetime: 08/07/2016 22:18 NBP Sys/Sue/Mean (mmHg): 114 (QS system process) : 56 (QS system process) : 77 (QS system process) Pulse: 104 (QS system process) Datetime: 08/07/2016 22:16 Frequency (min): 2-3 (Carmen Harrison RN) Monitor Mode: External US (Carmen Harrison RN) Pain Scale: 5 (Carmen Harrison RN) Pain Presence: Intermittent (Carmen Harrison RN) Pain Type: Contraction (Carmen Harrison RN) Pain Location: Abdomen (Carmen Harrison RN) Pain Relief Measures: Comfort Measures (Carmen Harrison RN) Pain Coping: Breathing Through Contractions (Carmen Harrison RN) Membrane Status: Intact (Carmen Harrison RN) Vaginal Bleeding: None (Carmen Harrison RN) Level of Consciousness: Fully Conscious (Carmen Harrison RN) DTR's/Clonus: DTRs 1+ (Carmen Harrison RN) Headache: Frontal (Annotations: pt c/o of h/a through ) (Carmen Harrison RN) Breath Sounds, Left: Clear and Equal (Carmen Harrison RN) Breath Sounds, Right: Clear and Equal (Carmen Harrison RN) Nausea/Vomiting: Present (Annotations: with ctx) (Carmen Harrison RN)
== END 2016-08-08 00:53 | disposition home or self-care (01) ==
LOC: LC 22:03
PROVIDERS: ATTEND Obstetrics & Gynecology
PROC: 4A1HXCZ Monitoring of Products of Conception, Cardiac Rate, External Approach (ICD-10-PCS; principal; 2016-08-07)
DX: O47.03 False labor before 37 completed weeks of gestation, third trimester (principal); O98.813 Other maternal infectious and parasitic diseases complicating pregnancy, third trimester; A59.9 Trichomoniasis, unspecified; Z3A.30 30 weeks gestation of pregnancy
CPT/HCPCS: 59899; 81005; 80307; 76815; J3490

== ENCOUNTER 2016-08-31 16:23 | Outpatient (CLI) | payer MEDICAID ==
[2016-08-31 18:25] LABS: APPEARANCE,URINE SLIGHTLY-CLOUDY; BILIRUBIN,URINE NEGATIVE (NEGATIVE); GLUCOSE, URINE NEGATIVE (NEGATIVE); KETONES,URINE 20 mg/dL (NEGATIVE); LEUKOCYTE ESTERASE,URINE LARGE (NEGATIVE); NITRITE,URINE NEGATIVE (NEGATIVE); PROTEIN,URINE 30 mg/dL (NEGATIVE); URINE SPECIFIC GRAVITY 1.029; UROBILINOGEN,URINE NEGATIVE mg/dL (<2.0)
[2016-08-31 18:37] LABS: URINE BARBITURATES SCREEN NEGATIVE; URINE METHADONE SCREEN NEGATIVE; URINE OPIATES LOW NEGATIVE; URINE PHENCYCLIDINE SCREEN NEGATIVE
--- NOTE | 2016-08-31 18:59 | Non Stress Test Report ---
Non Stress Test Datetime Report Generated by CPN: 08/31/2016 18:59 DEMOGRAPHIC EGA NST: 33.6 INDICATION Indication for Study: Ordered by Provider Indication for Study (NST) Other: LC URINE RESULTS Urine Protein, NST: Positive Urine Ketones - NST: Positive Urine Glucose - NST: Negative Urine Blood - NST: Negative MONITORING Monitor Explained: Monitor Explained; Test Explained; Patient Verbalized Understanding Time on Monitor: 08/31/2016 16:42 Time off Monitor: 08/31/2016 18:50 NST Duration: 128 NST INTERVENTIONS NST Interventions: PO Hydration; Reposition Patient Physician Notified NST: Dr. Lozano BABY A: [id number] BABY A Movement : Present Contraction Frequency : none FHR Baseline : 145 Accelerations : 15X15 Decelerations : None Variability : Moderate 6-25bpm NST Review: Meets Criteria for Reactive NST NST Review and Verified By : Adwoa Sullivan RNC NST Results: Reactive NST REPORT Report Trigger: Send Report
== END 2016-08-31 18:55 | disposition home or self-care (01) ==
LOC: LC 16:23
PROVIDERS: ATTEND Obstetrics & Gynecology
PROC: 4A1HXCZ Monitoring of Products of Conception, Cardiac Rate, External Approach (ICD-10-PCS; principal; 2016-08-31)
DX: O47.03 False labor before 37 completed weeks of gestation, third trimester (principal); Z3A.33 33 weeks gestation of pregnancy
CPT/HCPCS: 59025; 80307; 81001

== ENCOUNTER 2016-09-03 13:44 | Emergency (ER) | payer MEDICAID ==
--- NOTE | 2016-09-03 13:51 | ER Document Report ---
ED Medical Screen (RME) - General Stated Complaint: SUICIDAL IDEATION Notes: Patient brought in by mobile crisis with complaints of suicidal ideation with plan. Patient states she is going to take a bunch of pills. Patient is currently 34 weeks . [facility] at [facility] yesterday and was told everything was okay with the baby. Patient receives iron injections every , last injection was yesterday. Denies abdominal pain or vaginal bleeding. I have greeted and performed a rapid initial assessment of this patient. A comprehensive ED assessment and evaluation of the patient, analysis of test results and completion of the medical decision making process will be conducted by additional ED providers. TRAVEL OUTSIDE OF THE [place] IN LAST 30 DAYS: No - Related Data Allergies/Adverse Reactions: No Known Allergies Allergy (Verified 09/03/16 13:48) Past Medical History Neurological Medical History: Reports: Hx Migraine - Immunizations Hx Diphtheria, Pertussis, Tetanus Vaccination: Yes Physical Exam - Vital signs Vitals: Temp Pulse Resp BP Pulse Ox 98.4 F 99 16 127/62 H 98 09/03/16 13:47 09/03/16 13:47 09/03/16 13:47 09/03/16 13:47 09/03/16 13:47 Course - Vital Signs Vital signs: Temp Pulse Resp BP Pulse Ox 98.4 F 99 16 127/62 H 98 09/03/16 13:47 09/03/16 13:47 09/03/16 13:47 09/03/16 13:47 09/03/16 13:47
[2016-09-03 14:17] LABS: ABSOLUTE LYMPHOCYTES (AUTO) 1.4 10^3/uL (0.5-4.7); ABSOLUTE MONOCYTES (AUTO) 0.4 10^3/uL (0.1-1.4); ABSOLUTE NEUT (AUTO) 3.9 10^3/uL (1.7-8.2); BASOPHILS % (AUTO) 0.4 % (0-2); EOSINOPHILS % (AUTO) 0.6 % (0-6); HEMATOCRIT 28.2 % (36.0-47.0); HEMOGLOBIN 9.4 g/dL (12.0-15.5); LYMPHOCYTES % (AUTO) 24.3 % (13-45); MEAN CORPUSCULAR HEMOGLOBIN 28.7 pg (27.0-33.4); MEAN CORPUSCULAR HGB CONC 33.3 g/dL (32.0-36.0); MEAN CORPUSCULAR VOLUME 86 fl (80-97); MONOCYTES % (AUTO) 6.8 % (3-13); RED BLOOD COUNT 3.27 10^6/uL (3.72-5.28); RED CELL DISTRIBUTION WIDTH 15.4 % (11.5-14.0); SEGMENTED NEUTROPHILS % (AUTO) 67.9 % (42-78); WHITE BLOOD COUNT 5.8 10^3/uL (4.0-10.5)
[2016-09-03 14:52] LABS: ALANINE AMINOTRANSFERASE 23 U/L (9-52); ALBUMIN 3.5 g/dL (3.5-5.0); ALKALINE PHOSPHATASE 165 U/L (38-126); ANION GAP 10 (5-19); ASPARTATE AMINO TRANSFERASE 16 U/L (14-36); BILIRUBIN,DIRECT 0.1 mg/dL (0.0-0.4); BILIRUBIN,TOTAL 0.4 mg/dL (0.2-1.3); BLOOD UREA NITROGEN 7 mg/dL (7-20); CALCIUM 9.7 mg/dL (8.4-10.2); CARBON DIOXIDE 26 mmol/L (22-30); CHLORIDE 105 mmol/L (98-107); CREATININE RESULT 0.58 mg/dL (0.52-1.25); GLUCOSE 78 mg/dL (75-110); POTASSIUM 4.3 mmol/L (3.6-5.0); SODIUM 141.1 mmol/L (137-145); TOTAL PROTEIN 6.8 g/dL (6.3-8.2)
[2016-09-03 14:57] LABS: ALCOHOL < 10 mg/dL (NONE DETECTED)
--- NOTE | 2016-09-03 15:37 | ER Document Report ---
ED General - General Chief Complaint: Suicidal Ideation Stated Complaint: SUICIDAL IDEATION TRAVEL OUTSIDE OF THE [place] IN LAST 30 DAYS: No - HPI Patient complains to provider of: suicidal ideation Notes: Patient coming in complaint of suicidal ideation. Patient states that currently she is approximately 34 weeks with a recent visit yesterday to her [employer] visit she was told to revisit that her is very healthy no complications. Patient states she wants to be evaluated today for suicidal ideation. Patient states also been ongoing ever since 2010 states she has had a suicide attempt the past which to multiple medications. Patient states today that her plan will be to taking the medication she get her hands on. Patient is unclear when she will be evaluated today is that this is been ongoing the entire . Mother is at bedside. Denies any fevers chills nausea vomiting diarrhea denies any vaginal discharge vaginal bleeding. - Related Data Allergies/Adverse Reactions: No Known Allergies Allergy (Verified 09/03/16 13:48) Past Medical History - Social History Smoking Status: Never Smoker Chew tobacco use (# tins/day): No Frequency of alcohol use: None Drug Abuse: None Family History: Reviewed & Not Pertinent Patient has suicidal ideation: Yes Neurological Medical History: Reports: Hx Migraine Renal/ Medical History: Denies: Hx Peritoneal Dialysis - Immunizations Hx Diphtheria, Pertussis, Tetanus Vaccination: Yes Hx Pneumococcal Vaccination: 08/12/11 Review of Systems - Review of Systems Constitutional: No symptoms reported EENT: No symptoms reported Cardiovascular: No symptoms reported Respiratory: No symptoms reported Gastrointestinal: No symptoms reported Genitourinary: No symptoms reported Female Genitourinary: No symptoms reported Musculoskeletal: No symptoms reported Skin: No symptoms reported Hematologic/Lymphatic: No symptoms reported Neurological/Psychological: Suicidal ideation -: Yes All other systems reviewed and negative Physical Exam - Vital signs Vitals: Temp Pulse Resp BP Pulse Ox 98.4 F 99 16 127/62 H 98 09/03/16 13:47 09/03/16 13:47 09/03/16 13:47 09/03/16 13:47 09/03/16 13:47 Interpretation: Normal - General General appearance: Appears well, Alert - HEENT Head: Normocephalic, Atraumatic Eyes: Normal Pupils: PERRL - Respiratory Respiratory status: No respiratory distress Chest status: Nontender Breath sounds: Normal Chest palpation: Normal - Cardiovascular Rhythm: Regular Heart sounds: Normal auscultation Murmur: No - Abdominal Inspection: Normal, Gravid female Distension: No distension Bowel sounds: Normal Tenderness: Nontender Organomegaly: No organomegaly - Back Back: Normal, Nontender - Extremities General upper extremity: Normal inspection, Nontender, Normal color, Normal ROM , Normal temperature General lower extremity: Normal inspection, Nontender, Normal color, Normal ROM , Normal temperature, Normal weight bearing. No: Renee's sign - Neurological Neuro grossly intact: Yes Cognition: Normal Orientation: AAOx4 [place] Coma Scale Eye Opening: Spontaneous [place] Coma Scale Verbal: Oriented [place] Coma Scale Motor: Obeys Commands Reyna Coma Scale Total: 15 Speech: Normal Motor strength normal: LUE, RUE, LLE, RLE Sensory: Normal - Psychological Associated symptoms: Normal affect, Normal mood - Skin Skin Temperature: Warm Skin Moisture: Dry Skin Color: Normal Course - Re-evaluation Re-evalutation: 09/03/16 15:37 - Vital Signs Vital signs: Temp Pulse Resp BP Pulse Ox 98.4 F 99 16 127/62 H 98 09/03/16 13:47 09/03/16 13:47 09/03/16 13:47 09/03/16 13:47 09/03/16 13:47 - Laboratory Result Diagrams: 09/03/16 13:57 09/03/16 13:57 Laboratory results interpreted by me: 09/03/16 09/03/16 09/03/16 13:24 13:57 13:57 RBC 3.27 L Hgb 9.4 L Hct 28.2 L RDW 15.4 H Alkaline Phosphatase 165 H Ur Leukocyte Esterase SMALL H Salicylates < 1.0 L Acetaminophen < 10 L Discharge - Discharge Clinical Impression: Suicidal ideation Qualifiers: Weeks of gestation: 34 weeks Qualified Code(s): Z3A.34 - 34 weeks gestation of Condition: Good Disposition: PSYCH HOSP/UNIT
[2016-09-03 15:39] LABS: APPEARANCE,URINE SLIGHTLY-CLOUDY; BILIRUBIN,URINE NEGATIVE (NEGATIVE); GLUCOSE, URINE NEGATIVE (NEGATIVE); KETONES,URINE NEGATIVE (NEGATIVE); LEUKOCYTE ESTERASE,URINE SMALL (NEGATIVE); NITRITE,URINE NEGATIVE (NEGATIVE); PROTEIN,URINE NEGATIVE (NEGATIVE); URINE SPECIFIC GRAVITY 1.015; UROBILINOGEN,URINE NEGATIVE mg/dL (<2.0)
[2016-09-03 15:55] LABS: URINE BARBITURATES SCREEN NEGATIVE; URINE METHADONE SCREEN NEGATIVE; URINE OPIATES LOW NEGATIVE; URINE PHENCYCLIDINE SCREEN NEGATIVE
[2016-09-03] MEDS ORDERED: FLUOXETINE HCL 20 MG CAPSULE PO ONE (18:25)
--- NOTE | 2016-09-03 21:59 | EKG REPORT ---
SEVERITY:- NORMAL ECG - SINUS RHYTHM : Confirmed by: Abhishek Garcia 03-Sep-2016 21:59:21
[2016-09-04] MEDS ORDERED: ACETAMINOPHEN 325 MG TABLET PO ONE (00:43)
[2016-09-04] MEDS ORDERED: METOCLOPRAMIDE HCL 10 MG TABLET PO ONE (01:19)
--- NOTE | 2016-09-04 09:12 | ER Document Report ---
Doctor's Note Notes: 09/04/16 09:12 As the rounding physician for our psychiatric patients, I have reviewed the chart, vitals, lab work. Patient has been examined and noted to be stable at this time. Pt started on prozac, mother states she will watch at home at all times. I am awaiting mental health in [place]. 09/04/16 09:24
[2016-09-04 09:33] VITALS: BP 116/57
--- NOTE | 2016-09-04 09:44 | PSYCHOLOGICAL NOTE ---
Psych Note - Psych Note Psych Note: Patient to ED with jackscrew worker. Patient is suicidal with a plan to "take a whole bunch of medicine". Patient is 34 weeks . Patient states that she had a plan to take pills. Patient is unable to pinpoint her target dating it just built up. She continue disclose that when she woke up this morning she just said "f it." She states she wrote suicide letters to her friends and loved ones dating that she loved them and was sorry. She continued disclosed that prior to her taking the pills her friend just "popped up." Patient states that she is felt depressed "forever" and that she "can't breathe." She states that it feels like she is standing still and people are moving around her. She continue disclose that she has to wear a mask in front of others and pretend to be happy when she is not. Clinician spoke with patient's mother, Raven [phone], she states that she is sad the patient didn't feel comfortable coming to her to tell her. She continued to disclose that she is taking leave in order to stay with her daughter during this time. She states she is willing to ensure the patient's safety off all medications ensure the patient does not have access to weapon. Patient is alert and orientated to person place time and circumstance. Mood is dysphoric with tearful affect. Patient endorses suicidal ideation denies homicidal ideation. Patient denies auditory of visual hallucinations; no delusions are noted. Thought process is logical, organized, and linear. Conversational speech was within normal rate, tone, and prosody. Eye contact was well maintained. Intellectual abilities appear to be within average range. Attention and concentration are good. Insight, judgment, impulse control are fair. 296.30(F33.9) major depressive disorder; unspecified, Current episode Impression\\plan: Patient is recommended for overnight mental health hold for observation. Patient is very despondent at this time. Patient will be reevaluated. Dr. Pierson was consulted and care of the patient; attending physician is in agreement with recommendations and disposition.
--- NOTE | 2016-09-04 09:49 | PSYCHOLOGICAL NOTE ---
Psych Note - Psych Note Psych Note: Patient to ED with child protective services social worker. Patient is suicidal with a plan to "take a whole bunch of medicine". Patient is 34 weeks . Previous Evaluation Patient states that she had a plan to take pills. Patient is unable to pinpoint her target dating it just built up. She continue disclose that when she woke up this morning she just said "f it." She states she wrote suicide letters to her friends and loved ones dating that she loved them and was sorry. She continued disclosed that prior to her taking the pills her friend just "popped up." Patient states that she is felt depressed "forever" and that she "can't breathe." She states that it feels like she is standing still and people are moving around her. She continue disclose that she has to wear a mask in front of others and pretend to be happy when she is not. Clinician spoke with patient's mother, Raven [phone], she states that she is sad the patient didn't feel comfortable coming to her to tell her. She continued to disclose that she is taking leave in order to stay with her daughter during this time. She states she is willing to ensure the patient's safety off all medications ensure the patient does not have access to weapon. Re-evaluation Patient states that she does not want have the baby. She continued to disclose her other children say they don't like her. Patient states that his feelings seem to have started after her first baby. She continue disclosed concern; "I' m scared something will happen." Patient states she is willing to try medication. Patient's mother agrees to continued assistance to the patient. 296.30(F33.9) major depressive disorder; unspecified, Current episode Impression\\plan: Patient is recommended for rescind of IVC and is considered psychiatrically cleared for discharge. Patient does not meet IVC criteria per [place] GS 120 2C. Patient patient's mother agrees to ensure patient has no access to medications or weapons. Patient is recommended to follow-up with [facility]. Patient is also recommended to follow-up with out patient mental health provider of choice. Dr. Pierson was consulted and care of the patient; attending physician is in agreement with recommendations and disposition.
== END 2016-09-04 09:47 | disposition home or self-care (01) ==
LOC: ER 13:44
DX: O26.893 Other specified pregnancy related conditions, third trimester (principal); R45.851 Suicidal ideations; Z3A.34 34 weeks gestation of pregnancy
CPT/HCPCS: 93005; 99285; 36415; 80307 ×4; 85025; 80053; 81001; 93010; J3490 ×3

== ENCOUNTER 2016-09-10 11:41 | Outpatient (CLI) | payer MEDICAID ==
[2016-09-10 12:29] LABS: APPEARANCE,URINE CLOUDY; BILIRUBIN,URINE NEGATIVE (NEGATIVE); GLUCOSE, URINE NEGATIVE (NEGATIVE); KETONES,URINE NEGATIVE (NEGATIVE); LEUKOCYTE ESTERASE,URINE MODERATE (NEGATIVE); NITRITE,URINE NEGATIVE (NEGATIVE); PROTEIN,URINE NEGATIVE (NEGATIVE); URINE SPECIFIC GRAVITY 1.014; UROBILINOGEN,URINE NEGATIVE mg/dL (<2.0)
[2016-09-10 13:02] LABS: URINE BARBITURATES SCREEN NEGATIVE; URINE METHADONE SCREEN NEGATIVE; URINE OPIATES LOW NEGATIVE; URINE PHENCYCLIDINE SCREEN NEGATIVE
--- NOTE | 2016-09-10 13:07 | Non Stress Test Report ---
Non Stress Test Datetime Report Generated by CPN: 09/10/2016 13:07 DEMOGRAPHIC EGA NST: 35.2 INDICATION Indication for Study: Ordered by Provider MONITORING Monitor Explained: Monitor Explained; Test Explained; Patient Verbalized Understanding Time on Monitor: 09/10/2016 11:57 Time off Monitor: 09/10/2016 12:57 NST Duration: 60 NST INTERVENTIONS NST Interventions: PO Hydration; Reposition Patient Physician Notified NST: Dr. Ram BABY A Movement : Present Contraction Frequency : Occassional FHR Baseline : 145 Accelerations : 15X15 Decelerations : None Variability : Moderate 6-25bpm NST Review: Meets Criteria for Reactive NST NST Review: Meets Criteria for Reactive NST NST Review and Verified By : Belle Yarbrough RNC NST Results: Reactive NST REPORT Report Trigger: Send Report
--- NOTE | 2016-09-10 16:14 | L&D Discharge Summary ---
OB Discharge Summary Datetime Report Generated by CPN: 09/10/2016 16:13 DISCHARGE DIAGNOSIS Diagnosis/Symptoms: Other Diagnoses/Symptoms Other: yeast infection Gestation: 34.2 Number of Babies in Womb: 1 Parity: 2 DIET/ACTIVITY/RESTRICTIONS Diet: Regular Activity: Normal Activity TEACHING/INSTRUCTIONS/REFERRALS Instructions Given To: Pt Instructions Understood: Patient Verbalized Understanding Referrals: None Educational Materials- Other: vulvovaginal candidiasis (Yeast Infection) DISCHARGE INFORMATION Discharged AMA: No Discharge Date/Time: 09/10/2016 13:03 Discharged To: Home Discharge Provider Name: Dr. Ram Accompanied By: Friend Discharge Method: Ambulatory Condition: Stable FOLLOW UP INFORMATION Follow Up With: [facility] Follow Up On: As Scheduled Follow Up Phone Number: [facility] - GENERAL INSTR-CALL PROVIDER IF: Contractions: Contractions or cramps become more frequent than 8 in one hour or 4 in 20 minutes; Regular painful contractions every 5 minutes or less for one hour. Time your contractions from the beginning of one to the beginning of the next Pressure: Pressure in your vagina or lower abdomen that may feel like the baby is pushing down Gush of Fluid/Blood: Gush of fluid or blood from your vagina (it is normal to have spotting after vaginal exam or intercourse) Vaginal Discharge: Change in the type or amount of vaginal discharge Decreased Movement: Your baby is not moving as much as usual- 4 movements in 1 hour after drinking and resting on side
--- NOTE | 2016-09-15 22:46 | L&D Current Admission ---
Current Admit Datetime Report Generated by N: 09/15/2016 22:45 ADMISSION INFORMATION Chief Complaint: Other (Annotations: pelvic pain and lower back pain ) (09/10/2016 12:27:Payton Malave RN) Chief Complaint: Uterine Cramping; Back Pain; Nausea; Vomiting (08/31/2016 17:11:Evette Harmon RN) Chief Complaint: Contractions (08/07/2016 22:16:Carmen Harrison RN) Chief Complaint: Contractions; Uterine Cramping (08/02/2016 11:31:Brooke Moody RN)
--- NOTE | 2016-09-15 22:46 | L&D Discharge Summary ---
OB Discharge Summary Datetime Report Generated by CPN: 09/15/2016 22:45 DISCHARGE DIAGNOSIS Diagnosis/Symptoms: Other Diagnoses/Symptoms Other: yeast infection Gestation: 35.2 Number of Babies in Womb: 1 Parity: 2 DIET/ACTIVITY/RESTRICTIONS Diet: Regular Activity: Normal Activity TEACHING/INSTRUCTIONS/REFERRALS Instructions Given To: Pt Instructions Understood: Patient Verbalized Understanding Referrals: None Educational Materials- Other: vulvovaginal candidiasis (Yeast Infection) DISCHARGE INFORMATION Discharged AMA: No Discharge Date/Time: 09/10/2016 13:03 Discharged To: Home Discharge Provider Name: Dr. Ram Accompanied By: Friend Discharge Method: Ambulatory Condition: Stable FOLLOW UP INFORMATION Follow Up With: [facility] Follow Up On: As Scheduled Follow Up Phone Number: [facility] - GENERAL INSTR-CALL PROVIDER IF: Contractions: Contractions or cramps become more frequent than 8 in one hour or 4 in 20 minutes; Regular painful contractions every 5 minutes or less for one hour. Time your contractions from the beginning of one to the beginning of the next Pressure: Pressure in your vagina or lower abdomen that may feel like the baby is pushing down Gush of Fluid/Blood: Gush of fluid or blood from your vagina (it is normal to have spotting after vaginal exam or intercourse) Vaginal Discharge: Change in the type or amount of vaginal discharge Decreased Movement: Your baby is not moving as much as usual- 4 movements in 1 hour after drinking and resting on side
--- NOTE | 2016-09-15 22:46 | L&D General Admission ---
General Admit Datetime Report Generated by CPN: 09/15/2016 22:45 INFORMATION Patient Age: 23 (04/04/2014 09:53:QS system process) EDC: 10/13/2016 00:00 (08/02/2016 11:20:Brooke Moody RN) : 3 (08/02/2016 11:20:Brooke Moody RN) Para: 2 (08/02/2016 15:57:Marilynn Campa RN) Para: 2 (08/02/2016 11:20:Brooke Moody RN) Term: 2 (08/02/2016 11:20:Brooke Moody RN) : 0 (08/02/2016 11:20:Brooke Moody RN) Spontaneous Abortions: 0 (08/02/2016 11:20:Brooke oMody RN) Induced Abortions: 0 (08/02/2016 11:20:Brooke Moody RN) Livin (08/02/2016 11:20:Brooke Moody RN) Cesareans: 0 (08/02/2016 11:20:Brooke Moody RN) VBACs: 0 (08/02/2016 11:20:Brooke Moody RN) Ectopic: 0 (08/02/2016 11:20:Brooke Moody RN) Multiple Births: 0 (08/02/2016 11:20:Brooke Moody RN) Baby, Number in Womb: 1 (08/02/2016 15:57:Marilynn Campa RN) Baby, Number in Womb: 1 (08/02/2016 11:20:Brooke Moody RN) CARE Primary Retail Wireless Sales Representative: [facility] (08/02/2016 11:20:Brooke Moody RN) Month of 1st Visit: 04/2016 (08/02/2016 11:20:Brooke Moody RN) Adequate Care: No (08/02/2016 11:20:Brooke Moody RN) Prepregnancy Weight (lb): 265 (08/02/2016 11:20:Brooke Moody RN) Prepregnancy Weight (kg): 120.5 (08/02/2016 11:20:QS system process) Height (in): 64 (09/10/2016 11:52:QS system process) Height (in): 64 (08/31/2016 17:01:QS system process) Height (in): 64 (08/02/2016 11:53:QS system process) Height (in): 66 (08/02/2016 11:10:QS system process) Height (in): 66 (02/18/2016 11:34:QS system process) Height (in): 66 (12/17/2015 15:34:QS system process) Height (in): 66 (10/21/2015 13:10:QS system process) Height (in): 66 (04/04/2014 09:53:QS system process) ALLERGIES Medication Allergy: No (08/02/2016 11:20:Brooke Moody RN) Medication Allergies: No Known Allergies (09/10/2016) (09/10/2016 11:51:QS system process) Medication Allergies: No Known Allergies (09/03/2016) (09/10/2016 11:41:QS system process) Medication Allergies: No Known Allergies (08/31/2016) (08/31/2016 16:54:QS system process) Medication Allergies: No Known Allergies (08/02/2016) (08/02/2016 11:52:QS system process) Medication Allergies: No Known Allergies (10/20/2015) (10/21/2015 13:10:QS system process) Medication Allergies: No Known Allergies (01/15/2014) (04/04/2014 09:53:QS system process) Latex Allergy: No Latex Allergies (08/02/2016 11:20:Brooke Moody RN) Food Allergies: N/A (08/02/2016 11:20:Brooke Moody RN) Environmental Allergies: N/A (08/02/2016 11:20:Brooke Moody RN) COMMUNICATION Primary Language: Djiboutian (08/02/2016 11:20:Brooke Moody RN) Medical Tx Preferred Language: Djiboutian (08/02/2016 11:20:Brooke Moody RN) DEMOGRAPHICS Address: [address] [place] [address] (08/31/2016 16:31:QS system process) Address: [address] [place] [address] (08/02/2016 11:10:QS system process) Address: [address] [place] [address] (12/17/2015 15:34:QS system process) Address: [address] [place] [address] (04/04/2014 09:53:QS system process) Zipcode: [address] (08/31/2016 16:31:QS system process) Zipcode: [address] (04/04/2014 09:53:QS system process) Home (08/02/2016 11:10:QS system process) Home (04/04/2014 09:53:QS system process) SSN: [id number] (04/04/2014 09:53:QS system process) Next of Kin Name: SHARAN JENNI (08/02/2016 11:15:QS system process) Next of Kin Name: SHARAN ROGERS (04/04/2014 09:53:QS system process) Next of Kin (04/04/2014 09:53:QS system process) Next of Kin Relationship: MO (04/04/2014 09:53:QS system process) Date of : 1990 (04/04/2014 09:53:QS system process) Marital Status: Single (04/04/2014 09:53:QS system process) Sex: Female (04/04/2014 09:53:QS system process) Race: (04/04/2014 09:53:QS system process) Ethnicity: Non- or (10/21/2015 13:10:QS system process) Sikh: Scientologist (04/04/2014 09:53:QS system process) DRUG AND ALCOHOL USE Alcohol: No (08/02/2016 11:20:Carmen Harrison RN) Cigarettes: Never Smoker. [id number] (08/02/2016 11:20:Carmen Harrison RN) Marijuana: No (08/02/2016 11:20:Carmen Harrison RN) Marijuana Comments: pt denies use. pt states that she is only around people who use. pt had positive THC on 08/02 (08/02/2016 11:20:Carmen Harrison RN) Cocaine: No (08/02/2016 11:20:Carmen Harrison RN) Other Illicit Drugs: No (08/02/2016 11:20:Carmen Harrison RN) VACCINE HISTORY Influenza Vaccine: No (08/02/2016 11:20:Carmen Harrison RN) Pneumococcal Vaccine: No (08/02/2016 11:20:Carmen Harrison RN) Tetanus Vaccine: No (08/02/2016 11:20:Carmen Harrison RN) Tdap Vaccine: No (08/02/2016 11:20:Carmen Harrison RN) Hepatitis B Vaccine: No (08/02/2016 11:20:Carmen Harrison RN) Route Driver [employer]: [facility] (08/02/2016 11:20:Carmen Harrison RN) Feeding Preference: Both (08/02/2016 11:20:Evette Harmon RN) Benefit of Breast Feed Discussed: Yes (08/02/2016 11:20:Evette Harmon RN) Circumcision: Yes (08/02/2016 11:20:Evette Harmon RN) Classes Attended: Yes (08/02/2016 11:20:Evette Harmon RN) Tubal Ligation: Yes (08/02/2016 11:20:Evette Harmon RN) Tubal Authorization Signed: Yes (08/02/2016 11:20:Evette Harmon RN) Consent: N/A (08/02/2016 11:20:Evette Harmon RN) Consent Signed: N/A (08/02/2016 11:20:Evette Harmon RN) Pain Management Plans: None (08/02/2016 11:20:Carmen Harrison RN) Plans for Labor and Delivery: None (08/02/2016 11:20:Carmen Harrison RN) Support Person: Sharan (08/02/2016 11:20:Carmen Harrison RN) Support Person Relationship: Mother (08/02/2016 11:20:Carmen Harrison RN) Cultural/Spritual Practice: No (08/02/2016 11:20:Evette Harmon RN) Spir/Cult Dietary Needs: No (08/02/2016 11:20:Evette Harmon RN) LIVING SITUATION/DISCHARGE PLAN Living Arrangements: House (08/02/2016 11:20:Carmen Harrison RN) Adequate Access to:: Electric; Heat; Refrigeration; Plumbing/Running water; Phone; Transportation (08/02/2016 11:20:Carmen Harrison RN) WIC Program: Yes (08/02/2016 11:20:Carmen Harrison RN) Discharge Health Sanitarian Person: Sharan (08/02/2016 11:20:Carmen Harrison RN) Person to Help after Discharge: Sharan (08/02/2016 11:20:Carmen Harrison RN) Currently Using Commun Resources: Yes (08/02/2016 11:20:Evette Harmon RN) Specify Current Resource Used: Food [place], Medicaid (08/02/2016 11:20:Evette Harmon RN) Outside Agency/Food Service Supervisor: No (08/02/2016 11:20:Evette Harmon RN) Car Seat for Discharge: Yes (08/02/2016 11:20:Evette Harmon RN) Adoption Requested: No (08/02/2016 11:20:Carmen Harrison RN) Pt Contact w/infant Post : N/A (08/02/2016 11:20:Carmen Harrison RN) LABS Blood Type: O Positive (08/02/2016 11:20:Brooke Moody RN) Antibody Screen: Negative (08/02/2016 11:20:Brooke Moody RN) Rho(G) this : Not Applicable (08/02/2016 11:20:Brooke Moody RN) Hemoglobin: 9.4 L (09/03/2016 13:57:QS system process) Hemoglobin: 11.0 L (03/04/2016 11:16:QS system process) Hematocrit: 28.2 L (09/03/2016 13:57:QS system process) Hematocrit: 32.7 L (03/04/2016 11:16:QS system process) MCV: 86 (09/03/2016 13:57:QS system process) MCV: 83 (03/04/2016 11:16:QS system process) Gonorrhea: Negative (08/02/2016 11:20:Carmen Harrison RN) Chlamydia: Negative (08/02/2016 11:20:Carmen Harrison RN) RPR/VDRL: Nonreactive (08/02/2016 11:20:Brooke Moody RN) HIV Exposure Test: Negative (08/02/2016 11:20:Brooke Moody RN) Hepatitis B: Negative (08/02/2016 11:20:Brooke Moody RN) Rubella: Immune (08/18/2015 10:17:Brooke Moody RN) Rubella Titer: 39.70 (08/18/2015 10:17:QS system process) OB/PREVIOUS HISTORY Previous Procedures: Ultrasound; NST (08/02/2016 11:20:Evette Harmon RN) Current Procedures: Ultrasound; NST (08/02/2016 11:20:Evette Harmon RN) History of Previous : No (08/02/2016 11:20:Brooke Moody RN) History of Gestational Diabetes: No (08/02/2016 11:20:Brooke Moody RN) History of PIH: No (08/02/2016 11:20:Brooke Moody RN) History of Incompetent Cervix: No (08/02/2016 11:20:Brooke Moody RN) History of Placenta Previa/Abrup: No (08/02/2016 11:20:Brooke Moody RN) History of Macrosomia: No (08/02/2016 11:20:Brooke Moody RN) History of IUGR: No (08/02/2016 11:20:Brooke Moody RN) History of Hemorrhage: No (08/02/2016 11:20:Brooke Moody RN) History of Loss/Stillborn: No (08/02/2016 11:20:Brooke Moody RN) History of : No (08/02/2016 11:20:Brooke Moody RN) History of D (Rh) Sensitization: No (08/02/2016 11:20:Brooke Moody RN) History Recurrent Loss/Stillborn: No (08/02/2016 11:20:Brooke Moody RN) History Depression/PP Depression: Yes (08/02/2016 11:20:Brooke Moody RN) History of Uterine Anomaly/SOY: No (08/02/2016 11:20:Brooke Moody RN) History of Infertility: No (08/02/2016 11:20:Brooke Moody RN) History of ART Treatment: No (08/02/2016 11:20:Brooke Moody RN) History of SOY: No (08/02/2016 11:20:Brooke Moody RN) Comments Obstetrical History: G1: 2011 38 week baby boy, 10-15 hour labor, 6 lb 5 oz G2: 2012 40.5 week baby girl, 9 hours labor, 7 lb 3 oz G3: Current, Late PNC 14 weeks History depression (08/02/2016 11:20:Brooke Moody RN) MEDICAL HISTORY Med Hx Diabetes: No (08/02/2016 11:20:Brooke Moody RN) Med Hx Hypertension: No (08/02/2016 11:20:Brooke Moody RN) Med Hx Heart Disease: No (08/02/2016 11:20:Brooke Moody RN) Med Hx Autoimmune Disorder: Yes (08/02/2016 11:20:Brooke Moody RN) Med Hx Kidney Disease/UTI: No (08/02/2016 11:20:Brooke Moody RN) Med Hx Neurologic/Epilepsy: No (08/02/2016 11:20:Brooke Moody RN) Med Hx Psychiatric Disorders: Yes (08/02/2016 11:20:Brooke Moody RN) Med Hx Hepatitis/Liver Disease: No (08/02/2016 11:20:Brooke Moody RN) Med Hx Varicosities/Phlebitis: No (08/02/2016 11:20:Brooke Moody RN) Med Hx Thyroid Dysfunction: No (08/02/2016 11:20:Brooke Moody RN) Med Hx Trauma/Violence: No (08/02/2016 11:20:Brooke Moody RN) Med Hx Blood Transfusion: Yes (08/02/2016 11:20:Brooke Moody RN) Med Hx Pulmonary (Asthma,TB): No (08/02/2016 11:20:Brooke Moody RN) Med Hx Breast: No (08/02/2016 11:20:Brooke Moody RN) Med Hx DEGREASER Surgery: No (08/02/2016 11:20:Brooke Moody RN) Med Hx Hospitalization/Surgery: Yes (08/02/2016 11:20:Brooke Moody RN) Med Hx Anesthetic Complications: No (08/02/2016 11:20:Brooke oMody RN) Med Hx Abnormal Pap Smear: No (08/02/2016 11:20:Brooke Moody RN) Other Medical Diseases: No (08/02/2016 11:20:Brooke Moody RN) Med Hx Significant Family Hx: No (08/02/2016 11:20:Brooke Moody RN) Details of Med/Surg Hx: UTI: Ages 5 and 9 Psychiatric/Depression: History depression, Homicidal ideation, Suicidal ideation Blood Transfusion: At 1993 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 (08/02/2016 11:20:Brooke Moody RN) INFECTIOUS HISTORY Inf Hx Gonorrhea: No (08/02/2016 11:20:Brooke Moody RN) Inf Hx Chlamydia: Yes (08/02/2016 11:20:Brooke Moody RN) Inf Hx Syphilis: No (08/02/2016 11:20:Brooke Moody RN) Inf Hx HIV/AIDS: No (08/02/2016 11:20:Brooke Moody RN) Inf Hx Human Papilloma Virus: No (08/02/2016 11:20:Brooke Moody RN) Inf Hx Pt/Partner Genital Herpes: No (08/02/2016 11:20:Brooke Moody RN) Inf Hx Tuberculosis/Exposure: No (08/02/2016 11:20:Brooke Moody RN) Inf Hx Hepatitis B,C: No (08/02/2016 11:20:Brooke Moody RN) Inf Hx Rash or Viral Illness: No (08/02/2016 11:20:Brooke Moody RN) Details of Infectious Hx: Chlamydia: Positive with current , HECTOR negative (08/02/2016 11:20:Brooke Moody RN) GENETIC HISTORY Gen Hx Age >=35 at THOMAS: No (08/02/2016 11:20:Brooke Moody RN) Gen Hx Thalassemia: No (08/02/2016 11:20:Brooke Moody RN) Gen Hx Congenital Heart Defect: No (08/02/2016 11:20:Brooke Moody RN) Gen Hx Neural Tube Defect: No (08/02/2016 11:20:Brooke Moody RN) Gen Hx Down's Syndrome: No (08/02/2016 11:20:Brooke Moody RN) Gen Hx Negro-Sachs: No (08/02/2016 11:20:Brooke Moody RN) Gen Hx Carolann: No (08/02/2016 11:20:Brooke Moody RN) Gen Hx Familial Dysautonomia: No (08/02/2016 11:20:Brooke Moody RN) Gen Hx Sickle Cell Disease/Trait: Yes (08/02/2016 11:20:Brooke Moody RN) Gen Hx Hemophilia/Blood Disorder: No (08/02/2016 11:20:Brooke Moody RN) Gen Hx Muscular Dystrophy: No (08/02/2016 11:20:Brooke Moody RN) Gen Hx Cystic Fibrosis: No (08/02/2016 11:20:Brooke Moody RN) Gen Hx Huntingtons Chorea: No (08/02/2016 11:20:Brooke Moody RN) Gen Hx Mental Retardation/Autism: Yes (08/02/2016 11:20:Brooke Moody RN) Gen Hx Tested for Fragile X: No (08/02/2016 11:20:Brooke Moody RN) Gen Hx Other Inher/Chromosomal: No (08/02/2016 11:20:Brooke Moody RN) Gen Hx Maternal Metabolic DO: No (08/02/2016 11:20:Brooke Moody RN) Gen Hx Pt Father or FOB Defect: No (08/02/2016 11:20:Brooke Moody RN) Gen Hx Other Genetic History: No (08/02/2016 11:20:Brooke Moody RN) Gen Hx Drugs/Meds since LMP: No (08/02/2016 11:20:Brooke Moody RN) Details of Genetic History: Sickle Cell: Carries trait Mental Retardation/Mental Illness: Family history of both (08/02/2016 11:20:Brooke Moody RN)
--- NOTE | 2016-09-16 04:46 | L&D Current Admission ---
Current Admit Datetime Report Generated by CPN: 09/16/2016 04:45 ADMISSION INFORMATION Chief Complaint: Other (Annotations: pelvic pain and lower back pain ) (09/10/2016 12:27:Payton Malave RN) Chief Complaint: Uterine Cramping; Back Pain; Nausea; Vomiting (08/31/2016 17:11:Evette Harmon RN)
--- NOTE | 2016-09-16 04:46 | L&D Discharge Summary ---
OB Discharge Summary Datetime Report Generated by CPN: 09/16/2016 04:45 DISCHARGE DIAGNOSIS Diagnosis/Symptoms: Other Diagnoses/Symptoms Other: yeast infection Gestation: 35.2 Number of Babies in Womb: 1 Parity: 2 DIET/ACTIVITY/RESTRICTIONS Diet: Regular Activity: Normal Activity TEACHING/INSTRUCTIONS/REFERRALS Instructions Given To: Pt Instructions Understood: Patient Verbalized Understanding Referrals: None Educational Materials- Other: vulvovaginal candidiasis (Yeast Infection) DISCHARGE INFORMATION Discharged AMA: No Discharge Date/Time: 09/10/2016 13:03 Discharged To: Home Discharge Provider Name: Dr. Ram Accompanied By: Friend Discharge Method: Ambulatory Condition: Stable FOLLOW UP INFORMATION Follow Up With: [facility] Follow Up On: As Scheduled Follow Up Phone Number: [facility] - GENERAL INSTR-CALL PROVIDER IF: Contractions: Contractions or cramps become more frequent than 8 in one hour or 4 in 20 minutes; Regular painful contractions every 5 minutes or less for one hour. Time your contractions from the beginning of one to the beginning of the next Pressure: Pressure in your vagina or lower abdomen that may feel like the baby is pushing down Gush of Fluid/Blood: Gush of fluid or blood from your vagina (it is normal to have spotting after vaginal exam or intercourse) Vaginal Discharge: Change in the type or amount of vaginal discharge Decreased Movement: Your baby is not moving as much as usual- 4 movements in 1 hour after drinking and resting on side
--- NOTE | 2016-09-16 04:46 | L&D General Admission ---
General Admit Datetime Report Generated by CPN: 09/16/2016 04:45 CARE Height (in): 64 (09/10/2016 11:52:QS system process) Height (in): 64 (08/31/2016 17:01:QS system process) ALLERGIES Medication Allergies: No Known Allergies (09/10/2016) (09/10/2016 11:51:QS system process) Medication Allergies: No Known Allergies (09/03/2016) (09/10/2016 11:41:QS system process) Medication Allergies: No Known Allergies (08/31/2016) (08/31/2016 16:54:QS system process) DEMOGRAPHICS Address: [address] [place] [id number] (08/31/2016 16:31:QS system process) Zipcode: [address] (08/31/2016 16:31:QS system process) LABS Hemoglobin: 9.4 L (09/03/2016 13:57:QS system process) Hematocrit: 28.2 L (09/03/2016 13:57:QS system process) MCV: 86 (09/03/2016 13:57:QS system process)
--- NOTE | 2016-09-16 10:45 | L&D Discharge Summary ---
OB Discharge Summary Datetime Report Generated by CPN: 09/16/2016 10:45 DISCHARGE DIAGNOSIS Diagnosis/Symptoms: Other Diagnoses/Symptoms Other: yeast infection Gestation: 35.2 Number of Babies in Womb: 1 Parity: 2 DIET/ACTIVITY/RESTRICTIONS Diet: Regular Activity: Normal Activity TEACHING/INSTRUCTIONS/REFERRALS Instructions Given To: Pt Instructions Understood: Patient Verbalized Understanding Referrals: None Educational Materials- Other: vulvovaginal candidiasis (Yeast Infection) DISCHARGE INFORMATION Discharged AMA: No Discharge Date/Time: 09/10/2016 13:03 Discharged To: Home Discharge Provider Name: Dr. Ram Accompanied By: Friend Discharge Method: Ambulatory Condition: Stable FOLLOW UP INFORMATION Follow Up With: [facility] Follow Up On: As Scheduled Follow Up Phone Number: [facility] - GENERAL INSTR-CALL PROVIDER IF: Contractions: Contractions or cramps become more frequent than 8 in one hour or 4 in 20 minutes; Regular painful contractions every 5 minutes or less for one hour. Time your contractions from the beginning of one to the beginning of the next Pressure: Pressure in your vagina or lower abdomen that may feel like the baby is pushing down Gush of Fluid/Blood: Gush of fluid or blood from your vagina (it is normal to have spotting after vaginal exam or intercourse) Vaginal Discharge: Change in the type or amount of vaginal discharge Decreased Movement: Your baby is not moving as much as usual- 4 movements in 1 hour after drinking and resting on side
--- NOTE | 2016-09-16 10:45 | L&D General Admission ---
General Admit Datetime Report Generated by CPN: 09/16/2016 10:45 INFORMATION Patient Age: 23 (04/04/2014 09:53:QS system process) EDC: 10/13/2016 00:00 (08/02/2016 11:20:Brooke Moody RN) : 3 (08/02/2016 11:20:Brooke Moody RN) Para: 2 (08/02/2016 15:57:Marilynn Campa RN) Para: 2 (08/02/2016 11:20:Brooke Moody RN) Term: 2 (08/02/2016 11:20:Brooke Moody RN) : 0 (08/02/2016 11:20:Brooke Moody RN) Spontaneous Abortions: 0 (08/02/2016 11:20:Brooke Moody RN) Induced Abortions: 0 (08/02/2016 11:20:Brooke Moody RN) Livin (08/02/2016 11:20:Brooke Moody RN) Cesareans: 0 (08/02/2016 11:20:Brooke Moody RN) VBACs: 0 (08/02/2016 11:20:Brooke Moody RN) Ectopic: 0 (08/02/2016 11:20:Brooke Moody RN) Multiple Births: 0 (08/02/2016 11:20:Brooke Moody RN) Baby, Number in Womb: 1 (08/02/2016 15:57:Marilynn Campa RN) Baby, Number in Womb: 1 (08/02/2016 11:20:Brooke Moody RN) CARE Primary Chip Silo Tender: [facility] (08/02/2016 11:20:Brooke Moody RN) Month of 1st Visit: 04/2016 (08/02/2016 11:20:Brooke Moody RN) Adequate Care: No (08/02/2016 11:20:Brooke Moody RN) Prepregnancy Weight (lb): 265 (08/02/2016 11:20:Brooke Moody RN) Prepregnancy Weight (kg): 120.5 (08/02/2016 11:20:QS system process) Height (in): 64 (09/10/2016 11:52:QS system process) Height (in): 64 (08/31/2016 17:01:QS system process) Height (in): 64 (08/02/2016 11:53:QS system process) Height (in): 66 (08/02/2016 11:10:QS system process) Height (in): 66 (02/18/2016 11:34:QS system process) Height (in): 66 (12/17/2015 15:34:QS system process) Height (in): 66 (10/21/2015 13:10:QS system process) Height (in): 66 (04/04/2014 09:53:QS system process) ALLERGIES Medication Allergy: No (08/02/2016 11:20:Brooke Moody RN) Medication Allergies: No Known Allergies (09/10/2016) (09/10/2016 11:51:QS system process) Medication Allergies: No Known Allergies (09/03/2016) (09/10/2016 11:41:QS system process) Medication Allergies: No Known Allergies (08/31/2016) (08/31/2016 16:54:QS system process) Medication Allergies: No Known Allergies (08/02/2016) (08/02/2016 11:52:QS system process) Medication Allergies: No Known Allergies (10/20/2015) (10/21/2015 13:10:QS system process) Medication Allergies: No Known Allergies (01/15/2014) (04/04/2014 09:53:QS system process) Latex Allergy: No Latex Allergies (08/02/2016 11:20:Brooke Moody RN) Food Allergies: N/A (08/02/2016 11:20:Brooke Moody RN) Environmental Allergies: N/A (08/02/2016 11:20:Brooke Moody RN) COMMUNICATION Primary Language: Omani (08/02/2016 11:20:Brooke Moody RN) Medical Tx Preferred Language: Omani (08/02/2016 11:20:Brooke Moody RN) DEMOGRAPHICS Address: [address] [place] [address] (08/31/2016 16:31:QS system process) Address: [address] [place] [address] (08/02/2016 11:10:QS system process) Address: [address] [place] [address] (12/17/2015 15:34:QS system process) Address: [address] [place] [address] (04/04/2014 09:53:QS system process) Zipcode: [address] (08/31/2016 16:31:QS system process) Zipcode: [address] (04/04/2014 09:53:QS system process) Home (08/02/2016 11:10:QS system process) Home (04/04/2014 09:53:QS system process) SSN: [id number] (04/04/2014 09:53:QS system process) Next of Kin Name: SHARAN JENNI (08/02/2016 11:15:QS system process) Next of Kin Name: SHARAN ROGERS (04/04/2014 09:53:QS system process) Next of Kin (04/04/2014 09:53:QS system process) Next of Kin Relationship: MO (04/04/2014 09:53:QS system process) Date of : 1990 (04/04/2014 09:53:QS system process) Marital Status: Single (04/04/2014 09:53:QS system process) Sex: Female (04/04/2014 09:53:QS system process) Race: (04/04/2014 09:53:QS system process) Ethnicity: Non- or (10/21/2015 13:10:QS system process) Evangelical: Scientology (04/04/2014 09:53:QS system process) DRUG AND ALCOHOL USE Alcohol: No (08/02/2016 11:20:Carmen Harrison RN) Cigarettes: Never Smoker. [id number] (08/02/2016 11:20:Carmen Harrison RN) Marijuana: No (08/02/2016 11:20:Carmen Harrison RN) Marijuana Comments: pt denies use. pt states that she is only around people who use. pt had positive THC on 08/02 (08/02/2016 11:20:Carmen Harrison RN) Cocaine: No (08/02/2016 11:20:Carmen Harrison RN) Other Illicit Drugs: No (08/02/2016 11:20:Carmen Harrison RN) VACCINE HISTORY Influenza Vaccine: No (08/02/2016 11:20:Carmen Harrison RN) Pneumococcal Vaccine: No (08/02/2016 11:20:Carmen Harrison RN) Tetanus Vaccine: No (08/02/2016 11:20:Carmen Harrison RN) Tdap Vaccine: No (08/02/2016 11:20:Carmen Harrison RN) Hepatitis B Vaccine: No (08/02/2016 11:20:Carmen Harrison RN) Electron Tube Assembler: [facility] (08/02/2016 11:20:Carmen Harrison RN) Feeding Preference: Both (08/02/2016 11:20:Evette Harmon RN) Benefit of Breast Feed Discussed: Yes (08/02/2016 11:20:Evette Harmon RN) Circumcision: Yes (08/02/2016 11:20:Evette Harmon RN) Classes Attended: Yes (08/02/2016 11:20:Evette Harmon RN) Tubal Ligation: Yes (08/02/2016 11:20:Evette Harmon RN) Tubal Authorization Signed: Yes (08/02/2016 11:20:Evette Harmon RN) Consent: N/A (08/02/2016 11:20:Evette Harmon RN) Consent Signed: N/A (08/02/2016 11:20:Evette Harmon RN) Pain Management Plans: None (08/02/2016 11:20:Carmen Harrison RN) Plans for Labor and Delivery: None (08/02/2016 11:20:Carmen Harrison RN) Support Person: Sharan (08/02/2016 11:20:Carmen Harrison RN) Support Person Relationship: Mother (08/02/2016 11:20:Carmen Harrison RN) Cultural/Spritual Practice: No (08/02/2016 11:20:Evette Harmon RN) Spir/Cult Dietary Needs: No (08/02/2016 11:20:Evette Harmon RN) LIVING SITUATION/DISCHARGE PLAN Living Arrangements: House (08/02/2016 11:20:Carmen Harrison RN) Adequate Access to:: Electric; Heat; Refrigeration; Plumbing/Running water; Phone; Transportation (08/02/2016 11:20:Carmen Harrison RN) WIC Program: Yes (08/02/2016 11:20:Carmen Harrison RN) Discharge Plug Shaper Hand Person: Sharan (08/02/2016 11:20:Carmen Harrison RN) Person to Help after Discharge: Sharan (08/02/2016 11:20:Carmen Harrison RN) Currently Using Commun Resources: Yes (08/02/2016 11:20:Evette Harmon RN) Specify Current Resource Used: Food [place], Medicaid (08/02/2016 11:20:Evette Harmon RN) Outside Agency/[place] Shoulder Pad: No (08/02/2016 11:20:Evette Harmon RN) Car Seat for Discharge: Yes (08/02/2016 11:20:Evette Harmon RN) Adoption Requested: No (08/02/2016 11:20:Carmen Harrison RN) Pt Contact w/infant Post : N/A (08/02/2016 11:20:Carmen Harrison RN) LABS Blood Type: O Positive (08/02/2016 11:20:Brooke Moody RN) Antibody Screen: Negative (08/02/2016 11:20:Brooke Moody RN) Rho(G) this : Not Applicable (08/02/2016 11:20:Brooke Moody RN) Hemoglobin: 9.4 L (09/03/2016 13:57:QS system process) Hemoglobin: 11.0 L (03/04/2016 11:16:QS system process) Hematocrit: 28.2 L (09/03/2016 13:57:QS system process) Hematocrit: 32.7 L (03/04/2016 11:16:QS system process) MCV: 86 (09/03/2016 13:57:QS system process) MCV: 83 (03/04/2016 11:16:QS system process) Gonorrhea: Negative (08/02/2016 11:20:Carmen Harrison RN) Chlamydia: Negative (08/02/2016 11:20:Carmen Harrison RN) RPR/VDRL: Nonreactive (08/02/2016 11:20:Brooke Moody RN) HIV Exposure Test: Negative (08/02/2016 11:20:Brooke Moody RN) Hepatitis B: Negative (08/02/2016 11:20:Brooke Moody RN) Rubella: Immune (08/18/2015 10:17:Brooke Moody RN) Rubella Titer: 39.70 (08/18/2015 10:17:QS system process) OB/PREVIOUS HISTORY Previous Procedures: Ultrasound; NST (08/02/2016 11:20:Evette Harmon RN) Current Procedures: Ultrasound; NST (08/02/2016 11:20:Evette Harmon RN) History of Previous : No (08/02/2016 11:20:Brooke Moody RN) History of Gestational Diabetes: No (08/02/2016 11:20:Brooke Moody RN) History of PIH: No (08/02/2016 11:20:Brooke Moody RN) History of Incompetent Cervix: No (08/02/2016 11:20:Brooke Moody RN) History of Placenta Previa/Abrup: No (08/02/2016 11:20:Brooke Moody RN) History of Macrosomia: No (08/02/2016 11:20:Brooke Moody RN) History of IUGR: No (08/02/2016 11:20:Brooke Moody RN) History of Hemorrhage: No (08/02/2016 11:20:Brooke Moody RN) History of Loss/Stillborn: No (08/02/2016 11:20:Brooke Moody RN) History of : No (08/02/2016 11:20:Brooke Moody RN) History of D (Rh) Sensitization: No (08/02/2016 11:20:Brooke Moody RN) History Recurrent Loss/Stillborn: No (08/02/2016 11:20:Brooke Moody RN) History Depression/PP Depression: Yes (08/02/2016 11:20:Brooke Moody RN) History of Uterine Anomaly/SOY: No (08/02/2016 11:20:Brooke Moody RN) History of Infertility: No (08/02/2016 11:20:Brooke Moody RN) History of ART Treatment: No (08/02/2016 11:20:Brooke Moody RN) History of SOY: No (08/02/2016 11:20:Brooke Moody RN) Comments Obstetrical History: G1: 2011 38 week baby boy, 10-15 hour labor, 6 lb 5 oz G2: 2012 40.5 week baby girl, 9 hours labor, 7 lb 3 oz G3: Current, Late PNC 14 weeks History depression (08/02/2016 11:20:Brooke Moody RN) MEDICAL HISTORY Med Hx Diabetes: No (08/02/2016 11:20:Brooke Moody RN) Med Hx Hypertension: No (08/02/2016 11:20:Brooke Moody RN) Med Hx Heart Disease: No (08/02/2016 11:20:Brooke Moody RN) Med Hx Autoimmune Disorder: Yes (08/02/2016 11:20:Brooke Moody RN) Med Hx Kidney Disease/UTI: No (08/02/2016 11:20:Brooke Moody RN) Med Hx Neurologic/Epilepsy: No (08/02/2016 11:20:Brooke Moody RN) Med Hx Psychiatric Disorders: Yes (08/02/2016 11:20:Brooke Moody RN) Med Hx Hepatitis/Liver Disease: No (08/02/2016 11:20:Brooke Moody RN) Med Hx Varicosities/Phlebitis: No (08/02/2016 11:20:Brooke Moody RN) Med Hx Thyroid Dysfunction: No (08/02/2016 11:20:Brooke Moody RN) Med Hx Trauma/Violence: No (08/02/2016 11:20:Brooke Moody RN) Med Hx Blood Transfusion: Yes (08/02/2016 11:20:Brooke Moody RN) Med Hx Pulmonary (Asthma,TB): No (08/02/2016 11:20:Brooke Moody RN) Med Hx Breast: No (08/02/2016 11:20:Brooke Moody RN) Med Hx FEDERAL DISTRICT CLERK Surgery: No (08/02/2016 11:20:Brooke Moody RN) Med Hx Hospitalization/Surgery: Yes (08/02/2016 11:20:Brooke Moody RN) Med Hx Anesthetic Complications: No (08/02/2016 11:20:Brooke Moody RN) Med Hx Abnormal Pap Smear: No (08/02/2016 11:20:Brooke Moody RN) Other Medical Diseases: No (08/02/2016 11:20:Brooke Moody RN) Med Hx Significant Family Hx: No (08/02/2016 11:20:Brooke Moody RN) Details of Med/Surg Hx: UTI: Ages 5 and 9 Psychiatric/Depression: History depression, Homicidal ideation, Suicidal ideation Blood Transfusion: At 1993 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 (08/02/2016 11:20:Brooke Moody RN) INFECTIOUS HISTORY Inf Hx Gonorrhea: No (08/02/2016 11:20:Brooke Moody RN) Inf Hx Chlamydia: Yes (08/02/2016 11:20:Brooke Moody RN) Inf Hx Syphilis: No (08/02/2016 11:20:Brooke Moody RN) Inf Hx HIV/AIDS: No (08/02/2016 11:20:Brooke Moody RN) Inf Hx Human Papilloma Virus: No (08/02/2016 11:20:Brooke Moody RN) Inf Hx Pt/Partner Genital Herpes: No (08/02/2016 11:20:Brooke Moody RN) Inf Hx Tuberculosis/Exposure: No (08/02/2016 11:20:Brooke Moody RN) Inf Hx Hepatitis B,C: No (08/02/2016 11:20:Brooke Moody RN) Inf Hx Rash or Viral Illness: No (08/02/2016 11:20:Brooke Moody RN) Details of Infectious Hx: Chlamydia: Positive with current , HECTOR negative (08/02/2016 11:20:Brooke Moody RN) GENETIC HISTORY Gen Hx Age >=35 at THOMAS: No (08/02/2016 11:20:Brooke Moody RN) Gen Hx Thalassemia: No (08/02/2016 11:20:Brooke Moody RN) Gen Hx Congenital Heart Defect: No (08/02/2016 11:20:Brooke Moody RN) Gen Hx Neural Tube Defect: No (08/02/2016 11:20:Brooke Moody RN) Gen Hx Down's Syndrome: No (08/02/2016 11:20:Brooke Moody RN) Gen Hx Negro-Sachs: No (08/02/2016 11:20:Brooke Moody RN) Gen Hx Carolann: No (08/02/2016 11:20:Brooke Moody RN) Gen Hx Familial Dysautonomia: No (08/02/2016 11:20:Brooke Moody RN) Gen Hx Sickle Cell Disease/Trait: Yes (08/02/2016 11:20:Brooke Moody RN) Gen Hx Hemophilia/Blood Disorder: No (08/02/2016 11:20:Brooke Moody RN) Gen Hx Muscular Dystrophy: No (08/02/2016 11:20:Brooke Moody RN) Gen Hx Cystic Fibrosis: No (08/02/2016 11:20:Brooke Moody RN) Gen Hx Huntingtons Chorea: No (08/02/2016 11:20:Brooke Moody RN) Gen Hx Mental Retardation/Autism: Yes (08/02/2016 11:20:Brooke Moody RN) Gen Hx Tested for Fragile X: No (08/02/2016 11:20:Brooke Moody RN) Gen Hx Other Inher/Chromosomal: No (08/02/2016 11:20:Brooke Moody RN) Gen Hx Maternal Metabolic DO: No (08/02/2016 11:20:Brooke Moody RN) Gen Hx Pt Father or FOB Defect: No (08/02/2016 11:20:Brooke Moody RN) Gen Hx Other Genetic History: No (08/02/2016 11:20:Brooke Moody RN) Gen Hx Drugs/Meds since LMP: No (08/02/2016 11:20:Brooke Moody RN) Details of Genetic History: Sickle Cell: Carries trait Mental Retardation/Mental Illness: Family history of both (08/02/2016 11:20:Brooke Moody RN)
--- NOTE | 2016-09-16 10:45 | L&D Current Admission ---
Current Admit Datetime Report Generated by N: 09/16/2016 10:45 ADMISSION INFORMATION Chief Complaint: Other (Annotations: pelvic pain and lower back pain ) (09/10/2016 12:27:Payton Malave RN) Chief Complaint: Uterine Cramping; Back Pain; Nausea; Vomiting (08/31/2016 17:11:Evette Harmon RN) Chief Complaint: Contractions (08/07/2016 22:16:Carmen Harrison RN) Chief Complaint: Contractions; Uterine Cramping (08/02/2016 11:31:Brooke Moody RN)
== END 2016-09-10 13:13 | disposition home or self-care (01) ==
LOC: LC 11:41
PROVIDERS: ATTEND Obstetrics & Gynecology
PROC: 4A1HXCZ Monitoring of Products of Conception, Cardiac Rate, External Approach (ICD-10-PCS; principal; 2016-09-10)
DX: O98.813 Other maternal infectious and parasitic diseases complicating pregnancy, third trimester (principal); B37.3 Candidiasis of vulva and vagina; Z3A.35 35 weeks gestation of pregnancy
CPT/HCPCS: 59025; 80307; 81001; 87210

== ENCOUNTER 2016-09-27 09:56 | Outpatient (CLI) | payer MEDICAID ==
[2016-09-27 11:00] LABS: APPEARANCE,URINE CLOUDY; BILIRUBIN,URINE NEGATIVE (NEGATIVE); GLUCOSE, URINE NEGATIVE (NEGATIVE); KETONES,URINE NEGATIVE (NEGATIVE); LEUKOCYTE ESTERASE,URINE LARGE (NEGATIVE); NITRITE,URINE NEGATIVE (NEGATIVE); PROTEIN,URINE NEGATIVE (NEGATIVE); URINE SPECIFIC GRAVITY 1.014; UROBILINOGEN,URINE NEGATIVE mg/dL (<2.0)
[2016-09-27 11:15] LABS: URINE BARBITURATES SCREEN NEGATIVE; URINE METHADONE SCREEN NEGATIVE; URINE OPIATES LOW NEGATIVE; URINE PHENCYCLIDINE SCREEN NEGATIVE
== END 2016-09-27 11:18 | disposition home or self-care (01) ==
LOC: LC 09:56
PROVIDERS: ATTEND Specialist
DX: O62.9 Abnormality of forces of labor, unspecified (principal); Z3A.37 37 weeks gestation of pregnancy
CPT/HCPCS: 59025; 80307; 81005

== ENCOUNTER 2016-10-07 06:35 | Inpatient (IN) | payer MEDICAID ==
[2016-10-07] MEDS ORDERED: OXYTOCIN/NORMAL SALINE 1,000 ML IV PRN ×2 (06:48→20:09)
[2016-10-07] MEDS ORDERED: PENICILLIN G POTASSIUM 5,000,000 UNIT in DEXTROSE 5%-WATER 100 ML IV ONE (06:48)
[2016-10-07] MEDS ORDERED: RINGERS SOLUTION,LACTATED 1,000 ML IV PRN (06:48)
[2016-10-07] MEDS ORDERED: RINGERS SOLUTION,LACTATED 300 ML IV ONE (06:48)
[2016-10-07 07:22] LABS: APPEARANCE,URINE SLIGHTLY-CLOUDY; BILIRUBIN,URINE NEGATIVE (NEGATIVE); GLUCOSE, URINE NEGATIVE (NEGATIVE); KETONES,URINE NEGATIVE (NEGATIVE); LEUKOCYTE ESTERASE,URINE NEGATIVE (NEGATIVE); NITRITE,URINE NEGATIVE (NEGATIVE); PROTEIN,URINE NEGATIVE (NEGATIVE); URINE SPECIFIC GRAVITY 1.017; UROBILINOGEN,URINE NEGATIVE mg/dL (<2.0)
[2016-10-07] MEDS ORDERED: ACETAMINOPHEN 325 MG TABLET ONE (07:42)
[2016-10-07] MEDS ORDERED: OXYTOCIN/NORMAL SALINE 20 UNIT/1,000 ML RTUINJ ONE ×2 (07:42→19:20)
[2016-10-07] MEDS ORDERED: PENICILLIN G-K 5 MILLION UNIT VIAL ONE ×2 (07:43→12:11)
[2016-10-07 07:54] LABS: URINE BARBITURATES SCREEN NEGATIVE; URINE METHADONE SCREEN NEGATIVE; URINE OPIATES LOW NEGATIVE; URINE PHENCYCLIDINE SCREEN NEGATIVE
[2016-10-07 08:53] LABS: CHLAM PCR NOT DETECTED (NOT DETECT)
[2016-10-07] MEDS ORDERED: PENICILLIN G POTASSIUM 2,500,000 UNIT in DEXTROSE 5%-WATER 50 ML IV SCH (10:48)
[2016-10-07 12:12] LABS: ABSOLUTE LYMPHOCYTES (AUTO) 1.5 10^3/uL (0.5-4.7); ABSOLUTE MONOCYTES (AUTO) 0.4 10^3/uL (0.1-1.4); ABSOLUTE NEUT (AUTO) 3.6 10^3/uL (1.7-8.2); BASOPHILS % (AUTO) 0.8 % (0-2); EOSINOPHILS % (AUTO) 0.8 % (0-6); MEAN CORPUSCULAR HEMOGLOBIN 28.7 pg (27.0-33.4); MEAN CORPUSCULAR HGB CONC 32.4 g/dL (32.0-36.0); MEAN CORPUSCULAR VOLUME 89 fl (80-97); MONOCYTES % (AUTO) 6.7 % (3-13); RED CELL DISTRIBUTION WIDTH 16.2 % (11.5-14.0); SEGMENTED NEUTROPHILS % (AUTO) 64.7 % (42-78); WHITE BLOOD COUNT 5.6 10^3/uL (4.0-10.5)
[2016-10-07] MEDS ORDERED: EPHEDRINE SULFATE INJ 50 MG/1 ML AMPULE ONE (13:01)
[2016-10-07] MEDS ORDERED: BUPIVACAINE HCL 0.25 % INJ/PF (2.5 MG/1 ML) 30 ML VIAL ONE (13:01)
[2016-10-07] MEDS ORDERED: FENTANYL/BUPIVACAINE/NS/PF 200 MCG/100 ML RTUINJ EPI ONE (13:01)
--- NOTE | 2016-10-07 14:05 | L&D Progress Notes ---
PROGRESS NOTES Datetime Report Generated by CPN: 10/07/2016 14:05 PROGRESS NOTE Impression: Normal Progression of Labor; Reassuring Heart Rate Procedures: Artificial ROM; Scalp Electrode; Sterile Vag Exam Plan: Continue Present Management; Induction Informed Consent Obtained: Vaginal Delivery Vital Signs : Reviewed Comment: Feeling better with epidural AROM, FSE placed Continue pitocin Anticipate VAGINAL EXAM Dilatation: 4 Dilatation: 2 Effacement: 80 Effacement: 80 Station: -1 Station: -2 Contractions: 2-5 Contractions: irregular MEMBRANES Membranes: Intact Membranes: Intact Amniotic Fluid Color: Clear FETUS A FHR - Baseline: 145 Monitoring: External US Variability: Moderate 6-25bpm Accelerations: 15X15 Decelerations: None FHR Category: Category I Estimated Weight (gm): 3400 Presentation: Vertex SIGNATURE SIGNATURE: [id number];[id number] SIGNATURE: [id number] SIGNATURE: [id number] Assignment: Ralph Ram DO Signature: with User ID: [email or web address] : with User ID: [email or web address]
--- NOTE | 2016-10-07 17:21 | Non Stress Test Report ---
Non Stress Test Datetime Report Generated by CPN: 10/07/2016 17:20 DEMOGRAPHIC EGA NST: 37.5 INDICATION Indication for Study: Ordered by Provider Indication for Study (NST) Other: LC MONITORING Monitor Explained: Monitor Explained; Test Explained; Patient Verbalized Understanding Time on Monitor: 09/27/2016 10:16 Time off Monitor: 09/27/2016 11:09 NST Duration: 53 NST INTERVENTIONS NST Interventions: PO Hydration; Reposition Patient Physician Notified NST: H Douglas CNM BABY A: [id number] BABY A Movement : Present Contraction Frequency : none FHR Baseline : 145 Accelerations : 15X15 Decelerations : None Variability : Moderate 6-25bpm NST Review: Meets Criteria for Reactive NST NST Review and Verified By : AYE Woodall Results: Reactive NST REPORT Report Trigger: Send Report
--- NOTE | 2016-10-07 17:59 | L&D Progress Notes ---
PROGRESS NOTES Datetime Report Generated by CPN: 10/07/2016 17:59 PROGRESS NOTE Impression: Normal Progression of Labor Procedures: Sterile Vag Exam Plan: Continue Present Management Informed Consent Obtained: Vaginal Delivery Vital Signs : Reviewed; Within Normal Limits Comment: coping well continue present mgmt VAGINAL EXAM Dilatation: 6 Effacement: 90 Station: 0 Contractions: 4-5 MEMBRANES Membranes: Ruptured Amniotic Fluid Color: Clear FETUS A FHR - Baseline: 145 Monitoring: External US Variability: Moderate 6-25bpm Accelerations: 15X15 Decelerations: None FHR Category: Category I SIGNATURE SIGNATURE: [id number];[id number] SIGNATURE: [id number];[id number] Assignment: Ralph aRm DO Signature: with User ID: [email or web address] : with User ID: [email or web address]
[2016-10-07] MEDS: DINOPROSTONE 10 MG VAGINAL INSERT.SR PV PRN ×2 (19:12→19:13)
[2016-10-07] MEDS ORDERED: MISOPROSTOL 0.2 MG TABLET ONE (19:20)
[2016-10-07] MEDS ORDERED: LIDOCAINE 1% INJ-PF (10 MG/ML) 30 ML SDV ONE (19:20)
[2016-10-07] MEDS ORDERED: METHYLERGONOVINE MALEATE INJ/PF 0.2 MG/1 ML AMPULE ONE (19:21)
[2016-10-07] MEDS ORDERED: OXYTOCIN 10 UNIT/ML VIAL ONE (19:21)
[2016-10-07] MEDS ORDERED: MISOPROSTOL 0.2 MG TABLET PR PRN (19:55)
[2016-10-07] MEDS ORDERED: ZOLPIDEM TARTRATE 5 MG TABLET PO PRN (20:09)
[2016-10-07] MEDS ORDERED: DIPH/PERTUSS(ACELL)/TETANUS VAC/PF 0.5 ML SYR (>=10YO) IM PRN (20:09)
[2016-10-07] MEDS ORDERED: ACETAMINOPHEN WITH CODEINE #3 TABLET PO PRN (20:09)
[2016-10-07] MEDS ORDERED: BENZOCAINE/MENTHOL AEROSOL SPRAY 56 ML TOP PRN (20:09)
[2016-10-07] MEDS ORDERED: MEASLES,MUMPS&RUBELLA VACC/PF 0.5 ML VIAL SUBCUT PRN (20:09)
[2016-10-07] MEDS ORDERED: DIBUCAINE 1% OINTMENT 28 GM TP PRN (20:09)
[2016-10-07] MEDS ORDERED: IBUPROFEN 800 MG TABLET ONE (20:14)
--- NOTE | 2016-10-07 22:11 | Delivery Summary ---
Del Sum A-C Datetime Report Generated by CPN: 10/07/2016 22:11 DELIVERY PERSONNEL DELIVERY PERSONNEL: [id number];[id number];[id number] Delivery Doctor:: Khushbu Cole CNM Nurse Hardwood Finisher Certified:: Khushbu Cole CNM Labor and Delivery Nurse:: AYE Beaulieu/ORGANIZATIONAL EFFECTIVENESS CONSULTANT: Yesenia Wilcox CNA MATERNAL INFORMATION Delivery Anesthesia: Epidural Medications After Delivery: Other-Please Comment Meds After Delivery Comment: 1000 mcg NV Estimated Blood Loss (ml): 200 Maternal Complications: None Provider Comments: of viable male over intact perineum, head, shoulders, and body delivered without difficulty. Infant with spontaneous cry and respirations, cord clamped x2, cut free, to warmer. Spontaneous delivery of placenta via beckett mechanism, appears intact, 3VC. Vagina and perineum inspected, no lacerations noted, hemostasis acheived with external fundal massage and IV pitocin, mother and baby in stable condition, routine care. LABOR SUMMARY EDC: 10/13/2016 00:00 No. Babies in Womb: 1 Attempted: No Labor Anesthesia: Epidural LABOR INFORMATION Reason for Induction: Other Reason for Induction- Other: Elective for mental health reasons Onset of Labor: 10/07/2016 13:53 Complete Dilatation: 10/07/2016 19:30 Oxytocin: Induction Group B Beta Strep: positive Antibiotics Time of Last Dose: 0800/1230/1730 Name of Antibiotic Given: PCN Steroids Given: None Reason Steroids Not Administered: Not Applicable MEMBRANES Membranes Rupture Method: Artificial Rupture of Membranes: 10/07/2016 13:53 Length of Rupture (hr): 5.98 Amniotic Fluid Color: Clear Amniotic Fluid Amount: Scant Amniotic Fluid Odor: Normal STAGES OF LABOR Stage 1 hr: 5 Stage 1 min: 37 Stage 2 hr: 0 Stage 2 min: 22 Stage 3 hr: 0 Stage 3 min: 3 Total Time in Labor hr: 6 Total Time in Labor min: 2 VAGINAL DELIVERY Episiotomy: None Laceration Extension: N/A Laceration Type: None Laceration Repair: Not Applicable Laceration Repair Note: na Sponge Count Correct: N/A BABY A INFORMATION Delivery Date/Time: 10/07/2016 19:52 Method of Delivery: Vaginal Born in Route : No : N/A Forceps: N/A Vacuum Extraction: N/A Shoulder Dystocia : No PRESENTATION/POSITION BABY A Presentation: Cephalic Cephalic Presentation: Vertex Vertex Position: Left Occipital Anterior Breech Presentation: N/A PLACENTA INFORMATION BABY A Placenta Delivery Time : 10/07/2016 19:55 Placenta Method of Delivery: Spontaneous Placenta Status: Delivered SCORES BABY A Heart Rate 1 min: >100 bpm Resp Effort 1 min: Good Cry Reflex Irritability 1 min: Cough or Sneeze or Pulls Away Muscle Tone 1 min: Active Motion Color 1 min: Body Chicken, Extremities Blue Resuscitation Effort 1 min: Tactile Stimulation SCORE 1 MIN: 9 Heart Rate 5 min: >100 bpm Resp Effort 5 min: Good Cry Reflex Irritability 5 min: Cough or Sneeze or Pulls Away Muscle Tone 5 min: Active Motion Color 5 min: Body Chicken, Extremities Blue Resuscitation Effort 5 min: Tactile Stimulation SCORE 5 MIN: 9 INFORMATION BABY A Gestational Age at Delivery: 39.1 Gestational Status: Full Term- 39- 40.6 Weeks Infant Outcome : Liveborn Condition : Stable Sex: Male IDENTIFICATION BABY A Infant Verification Date/Time: 10/07/2016 20:11 ID Band Number: [id number] Mother's Name Verified: Yes RN Verifying Infant: , RN Additional Verifying Personnel: Peggy, ORGANIZATIONAL EFFECTIVENESS CONSULTANT/US WEIGHT/LENGTH BABY A Infant Birthweight (gm): 3160 Infant Weight (lb): 6 Infant Weight (oz): 15 Length (in): 19.75 Length (cm): 50.17 CORD INFORMATION BABY A No. Cord Vessels: 3 Nuchal Cord : N/A Cord Blood Taken: Yes-For Storage (Mom's Blood type +) Infant Suction: None ASSESSMENT BABY A Complications: None Physical Findings at Delivery: Within Normal Limits Respirations: Appears Normal Skin to Skin: Yes Skin to Skin Time (min): 60 Learning Analyst/ALS Called : No Infant Care By: Jcarlos Cohen RN Transferred To: Remains with Mother SIGNATURES Assignment: Ralph Ram DO Signature: with User ID: [email or web address] : with User ID: [email or web address]
--- NOTE | 2016-10-07 22:34 | Admission Physical ---
Datetime Report Generated by CPN: 10/07/2016 22:34 CURRENT ADMISSION Hx Assessment: The History has been Reviewed and is Current Chief Complaint: Scheduled Induction of Labor Indication for Induction: Other Indication for Induction- Other: Maternal mental health issues Admit Plan: Admit to Unit; Initiate Labor Induction Protocol ALLERGIES Medication Allergies: No Medication Allergies: No Known Allergies (10/07/2016) Medication Allergies: No Known Allergies (09/10/2016) Medication Allergies: No Known Allergies (09/03/2016) Medication Allergies: No Known Allergies (08/31/2016) Medication Allergies: No Known Allergies (08/02/2016) Medication Allergies: No Known Allergies (10/20/2015) Medication Allergies: No Known Allergies (01/15/2014) Latex: No Latex Allergies Food Allergies: N/A Environmental Allergies: N/A OBSTETRICAL HISTORY EDC: 10/13/2016 00:00 : 3 Para: 2 Para: 2 Term: 2 : 0 SAB: 0 IAB: 0 Ectopic: 0 Livin Cesareans: 0 VBACs: 0 Multiple Births: 0 Gestational Diabetes: No Rh Sensitization: No Incompetent Cervix: No SOY: No Infertility: No ART Treatment: No Uterine Anomaly: No IUGR: No Hx Previous C/S: No Macrosomia: No Hx Loss/Stillborn: No PIH: No Hx : No Placenta Previa/Abruption: No Depression/PP Depression: Yes PTL/PROM: No Post Hemorrhage: No Current Procedures: Ultrasound; NST Obstetrical History Comments: G1: 2011 38 week baby boy, 10-15 hour labor, 6 lb 5 oz G2: 2012 40.5 week baby girl, 9 hours labor, 7 lb 3 oz G3: Current, Late PNC 14 weeks History depression SEE RECORDS Alcohol: No Marijuana : No Marijuana Comments: pt denies use. pt states that she is only around people who use. pt had positive THC on 08/02 Cocaine: No Other Illicit Drugs: No Cigarettes: Never Smoker. 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 Surgery: No Heart Disease: No Hosp/Surgery: Yes Autoimmune Disorder: Yes Anesthetic Complications: No Kidney Disease: No Abnormal Pap Smear: No Neuro/Epilepsy: No Psychiatric Disorders: Yes Other Medical Diseases: No Hepatitis/Liver Disease: No Significant Family History: No Varicosities/Phlebitis: No Trauma/Violence : No Thyroid Dysfunction: No Medical History Comments: UTI: Ages 5 and 9 Psychiatric/Depression: History depression, Homicidal ideation, Suicidal ideation Blood Transfusion: At 1992 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 INFECTIOUS HISTORY Gonorrhea: No Genital Herpes: No Chlamydia: Yes Tuberculosis: No Syphilis: No Hepatitis: No HIV/AIDS Exposure: No Rash or Viral Illness: No HPV: No Infectious History Comments: Chlamydia: Positive with current , HECTOR negative PHYSICAL EXAM General: Normal HEENT: Normal Neurologic: Normal Thyroid: Deferred Heart: Normal Lungs: Normal Breast: Normal Back: Normal Abdomen: Normal Genitourinary Exam: Normal Extremities: Normal DTRs: Normal Pelvic Type: Adequate Physical Exam Comments: pelvis proven to 7 lbs 3 oz Vital Signs: Reviewed VAGINAL EXAM Dilatation: 6 Dilatation: 4 Dilatation: 2 Effacement: 90 Effacement: 80 Effacement: 80 Station: 0 Station: -1 Station: -2 Contraction Comments: 4-5 Contraction Comments: 2-5 Contraction Comments: irregular MEMBRANES Membranes: Ruptured Membranes: Intact Membranes: Intact Amniotic Fluid Color: Clear Amniotic Fluid Color: Clear FETUS A EGA: 39.1 Monitoring: External US FHR- Baseline: 140 Variability: Moderate 6-25bpm Accelerations: 15X15 Decelerations: None FHR Category: Category I Estimated Weight (gm): 3400 Presentation: Vertex Admit Comment: Pt doing ok mentally. Ready to have baby Admission for Induction Hx: suicidal ideations and hospitalization during this Hx: + chlamydia, with tx, anemia with iron transfusions, obesity. Desires BTL Has good family support GBS +, pcn Pitocin pt may have epidural anticipate PLANS FOR LABOR AND DELIVERY Labor and Delivery: None Pain Management: None Feeding Preference: Formula Benefit of Breast Feed Discussed: Yes Circumcision: Yes INFORMED CONSENT Informed Consent Obtained: Vaginal Delivery Informed Consent Obtained: Vaginal Delivery Assignment: Ralph Ram DO Signature: with User ID: [email or web address] : with User ID: [email or web address]
[2016-10-07] MEDS: IBUPROFEN 800 MG TABLET PO SCH (23:40)
[2016-10-07] MEDS: ACETAMINOPHEN WITH CODEINE #3 TABLET PO PRN (23:43)
[2016-10-08] MEDS: IBUPROFEN 800 MG TABLET PO SCH ×3 (05:50→21:55)
[2016-10-08 07:16] LABS: HEMATOCRIT 29.9 % (36.0-47.0); HEMOGLOBIN 9.8 g/dL (12.0-15.5); HGB HCT DIFFERENCE -0.5; MEAN CORPUSCULAR HEMOGLOBIN 29.3 pg (27.0-33.4); MEAN CORPUSCULAR HGB CONC 32.7 g/dL (32.0-36.0); MEAN CORPUSCULAR VOLUME 90 fl (80-97); RED BLOOD COUNT 3.34 10^6/uL (3.72-5.28); RED CELL DISTRIBUTION WIDTH 15.8 % (11.5-14.0); WHITE BLOOD COUNT 10.3 10^3/uL (4.0-10.5)
--- NOTE | 2016-10-08 10:06 | PDOC PROGRESS REPORT ---
Subjective-OB Subjective: Post Delivery Day: 26 year old. Denies any needs at this time Sitting up in bed, holding baby, lady in room with patient, ambulating, eating well, no c/o Physical Exam (OB) Vital Signs: Temp Pulse Resp BP Pulse Ox 97.9 F 71 16 114/55 L 100 10/08/16 07:34 10/08/16 07:34 10/08/16 07:34 10/08/16 07:34 10/08/16 07:34 Intake & Output 10/07/16 10/08/16 10/09/16 06:59 06:59 06:59 Intake Total 120 Balance 120 Weight 109.55 kg - Lochia Lochia Amount: Scant < 10 ml Lochia Color: Rubra/Red - Abdomen Description: Soft, Round Hernia Present: No Fundal Description: Firm, Midline Fundal Height: u/u - u/2 Objective-Diagnostic Laboratory: 10/08/16 06:57 10/07/16 10/07/16 10/08/16 11:57 11:57 06:57 WBC 5.6 10.3 RBC 3.50 L 3.34 L Hgb 10.0 L 9.8 L Hct 31.0 L 29.9 L MCV 89 90 MCH 28.7 29.3 MCHC 32.4 32.7 RDW 16.2 H 15.8 H Plt Count 186 167 Seg Neutrophils % 64.7 Lymphocytes % 27.0 Monocytes % 6.7 Eosinophils % 0.8 Basophils % 0.8 Absolute Neutrophils 3.6 Absolute Lymphocytes 1.5 Absolute Monocytes 0.4 Absolute Eosinophils 0.0 Absolute Basophils 0.0 Blood Type O POSITIVE Antibody Screen NEGATIVE Assessment and Plan(PN) - Assessment and Plan (1) Depression Qualifiers: Depression Type: major depressive disorder Major depression recurrence : recurrent Is this a current diagnosis for this admission?: Yes (2) Normal vaginal delivery Is this a current diagnosis for this admission?: Yes (3) Anemia Qualifiers: Anemia type: iron deficiency Is this a current diagnosis for this admission?: Yes - Time Spent with Patient Time with patient: Less than 15 minutes Medications reviewed and adjusted accordingly: Yes - Disposition Anticipated Discharge: Home
[2016-10-08] MEDS: SENNOSIDES/DOCUSATE 8.6-50 MG 1 EACH TABLET PO SCH (10:13)
[2016-10-08] MEDS: DOCUSATE SODIUM 100 MG CAPSULE PO SCH ×2 (10:14→17:50)
[2016-10-08] MEDS: FERROUS SULFATE 325 MG TABLET PO SCH ×2 (10:14→17:50)
[2016-10-08] MEDS: PRENATAL VITAMIN W-O CA NO5/FE FUMARATE/FA CAPSULE PO SCH (10:14)
[2016-10-08] MEDS: FLUOXETINE HCL 20 MG/5 ML UDCUP PO SCH (10:16)
[2016-10-08] MEDS: ACETAMINOPHEN WITH CODEINE #3 TABLET PO PRN (12:06)
[2016-10-09] MEDS: IBUPROFEN 800 MG TABLET PO SCH (05:20)
--- NOTE | 2016-10-09 08:48 | PDOC PROGRESS REPORT ---
Subjective-OB Subjective: Post Delivery Day: 26 year old. Denies any needs at this time Eating well, mother in room, voiding, bottle feeding, wearing bra, denies SI or HI, reports she has help at home Physical Exam (OB) Vital Signs: Temp Pulse Resp BP Pulse Ox 97.4 F 78 18 116/65 98 10/08/16 21:19 10/08/16 21:19 10/08/16 21:19 10/08/16 21:19 10/08/16 21:19 Intake & Output 10/08/16 10/09/16 10/10/16 06:59 06:59 06:59 Intake Total 120 Balance 120 Weight 109.55 kg - Lochia Lochia Amount: Scant < 10 ml Lochia Color: Rubra/Red - Abdomen Description: Soft, Round Hernia Present: No Fundal Description: Firm, Midline Fundal Height: u/u - u/2 Objective-Diagnostic Laboratory: 10/08/16 06:57 Assessment and Plan(PN) - Assessment and Plan (1) Depression Qualifiers: Depression Type: major depressive disorder Major depression recurrence : recurrent Is this a current diagnosis for this admission?: Yes (2) Normal vaginal delivery Is this a current diagnosis for this admission?: Yes (3) Anemia Qualifiers: Anemia type: iron deficiency Is this a current diagnosis for this admission?: Yes - Time Spent with Patient Time with patient: Less than 15 minutes Medications reviewed and adjusted accordingly: Yes - Disposition Anticipated Discharge: Home Within: Other - home today
--- NOTE | 2016-10-09 08:53 | PDOC DISCHARGE SUMMARY ---
Final Diagnosis Discharge Date: 10/09/16 - Final Diagnosis (1) Depression Is this a current diagnosis for this admission?: Yes (2) Normal vaginal delivery Is this a current diagnosis for this admission?: Yes (3) Anemia Is this a current diagnosis for this admission?: Yes Discharge Data - Discharge Medication Home Medications: Vit/Iron Fumarate/FA [ Tablet] 1 tab PO DAILY 08/02/16 Fluoxetine HCl [Prozac] 10 mg PO DAILY #7 capsule 09/04/16 Ferrous Sulfate [Feosol 325 mg Tablet] 325 mg PO BID #0 tablet 10/09/16 Fluoxetine HCl [Prozac Soln 20 mg/5 ml Udcup] 10 mg PO DAILY #0 udc 10/09/16 Gestational Age: 39.1 Reason(s) for Admission: Induction of Labor, Group B Strep Positive, Other - Mental Health Procedures: NST, Ultrasound Intrapartum Procedure(s): Spontaneous Vaginal Delivery - Data Baby 1 Male at 1 minute: 9 at 5 minutes: 9 Weight: 3.147 kg Home with Mother: Yes Complications: No - Diagnosis Test Laboratory: Temp Pulse Resp BP Pulse Ox 97.4 F 78 18 116/65 98 10/08/16 21:19 10/08/16 21:19 10/08/16 21:19 10/08/16 21:19 10/08/16 21:19 10/07/16 10/07/16 10/08/16 06:46 11:57 06:57 RBC 3.50 L 3.34 L Hgb 10.0 L 9.8 L Hct 31.0 L 29.9 L Urine Opiates Screen NEGATIVE - Discharge information/Instructions Discharge Activity: Activity As Tolerated, No Lifting Over 10 Pounds, Pelvic Rest, No tub bath Discharge Diet: As Tolerated, Regular Disposition: HOME, SELF-CARE Follow up with: [facility] in: 1, Weeks
[2016-10-09] MEDS: PRENATAL VITAMIN W-O CA NO5/FE FUMARATE/FA CAPSULE PO SCH (09:20)
[2016-10-09] MEDS: DOCUSATE SODIUM 100 MG CAPSULE PO SCH (09:20)
[2016-10-09] MEDS: FERROUS SULFATE 325 MG TABLET PO SCH (09:20)
[2016-10-09] MEDS: FLUOXETINE HCL 20 MG/5 ML UDCUP PO SCH (09:20)
[2016-10-09] MEDS: SENNOSIDES/DOCUSATE 8.6-50 MG 1 EACH TABLET PO SCH (09:20)
[2016-10-09 09:35] VITALS: BP 109/51
== END 2016-10-09 12:00 | disposition home or self-care (01) | DRG 774 ==
LOC: LR 06:35 → 2S 22:33
PROVIDERS: ADMIT Obstetrics & Gynecology; ATTEND Obstetrics & Gynecology
PROC: 10E0XZZ Delivery of Products of Conception, External Approach (ICD-10-PCS; principal; 2016-10-07)
PROC: 10907ZC Drainage of Amniotic Fluid, Therapeutic from Products of Conception, Via Natural or Artificial Opening (ICD-10-PCS; 2016-10-07)
DX: O99.344 Other mental disorders complicating childbirth (principal); O98.32 Other infections with a predominantly sexual mode of transmission complicating childbirth; F33.9 Major depressive disorder, recurrent, unspecified; Z68.41 Body mass index [BMI] 40.0-44.9, adult; O99.824 Streptococcus B carrier state complicating childbirth; O99.214 Obesity complicating childbirth; E66.9 Obesity, unspecified; A56.8 Sexually transmitted chlamydial infection of other sites; O99.02 Anemia complicating childbirth; D57.3 Sickle-cell trait; Z3A.39 39 weeks gestation of pregnancy; Z37.0 Single live birth
CPT/HCPCS: 36415; 80307; 81005; 85025; 85027; 86592; 86850; 86900; 86901; 87491; 87591; J2210; J2540; J2590; J3490

== ENCOUNTER 2017-03-03 07:07 | Day surgery (SDC) | payer MEDICAID ==
[2017-02-25 11:55] LABS: APPEARANCE,URINE SLIGHTLY-CLOUDY; BILIRUBIN,URINE NEGATIVE (NEGATIVE); GLUCOSE, URINE NEGATIVE (NEGATIVE); KETONES,URINE NEGATIVE (NEGATIVE); LEUKOCYTE ESTERASE,URINE TRACE (NEGATIVE); NITRITE,URINE NEGATIVE (NEGATIVE); PROTEIN,URINE NEGATIVE (NEGATIVE)
[2017-02-25 12:26] LABS: HEMATOCRIT 31.4 % (36.0-47.0); HEMOGLOBIN 10.5 g/dL (12.0-15.5); HGB HCT DIFFERENCE 0.1; MEAN CORPUSCULAR HEMOGLOBIN 28.1 pg (27.0-33.4); MEAN CORPUSCULAR HGB CONC 33.3 g/dL (32.0-36.0); MEAN CORPUSCULAR VOLUME 84 fl (80-97); RED BLOOD COUNT 3.72 10^6/uL (3.72-5.28); RED CELL DISTRIBUTION WIDTH 15.2 % (11.5-14.0); WHITE BLOOD COUNT 5.3 10^3/uL (4.0-10.5)
[~2017-03-03 07:07] MED LIST: LACTATED RINGERS 1000 ML IV PRN; LIDOCAINE 0.5% INJ-PF (5 MG/ML) 50 ML SDV SUBCUT PRN; RINGERS SOLUTION,LACTATED 1,000 ML IV PRN
[2017-03-03] MEDS ORDERED: HYDROMORPHONE HCL INJ/PF 2 MG/ML AMPULE ONE (08:37)
[2017-03-03] MEDS ORDERED: MIDAZOLAM 2 MG/2 ML INJ ONE (08:37)
[2017-03-03] MEDS ORDERED: IBUPROFEN INJ 800 MG/8 ML VIAL IV ONE (08:37)
[2017-03-03] MEDS ORDERED: PROPOFOL INJ 200 MG/20 ML VIAL IV ONE (08:37)
[2017-03-03] MEDS ORDERED: ONDANSETRON HCL INJ/PF 4 MG/2 ML SDV IV PRN (09:16)
[2017-03-03] MEDS ORDERED: FENTANYL CITRATE INJ/PF 100 MCG/2 ML AMPUL IV PRN ×3 (09:16)
[2017-03-03] MEDS ORDERED: DIPHENHYDRAMINE HCL 50 MG/ML VIAL IV PRN (09:16)
[2017-03-03] MEDS ORDERED: MEPERIDINE HCL/PF INJ 25 MG/1 ML DISP.SYRIN IV PRN (09:16)
[2017-03-03] MEDS ORDERED: PROMETHAZINE HCL INJ 25 MG/1 ML VIAL IV PRN ×2 (09:16)
[2017-03-03] MEDS ORDERED: OXYCODONE-ACETAMINOPHEN 5-325 MG TABLET PO PRN ×4 (09:16→10:09)
[2017-03-03] MEDS ORDERED: MORPHINE SULFATE 10 MG/ML INJ IV PRN (09:16)
--- NOTE | 2017-03-03 09:58 | Operative Report ---
Operative Report DATE OF SURGERY: 03/03/17 PREOPERATIVE DIAGNOSIS: Patient desires tubal ligation POSTOPERATIVE DIAGNOSIS: Same OPERATION: Laparoscopic bilateral Filshie clip placement SURGEON: STEPH SANFORD ANESTHESIA: GA TISSUE REMOVED OR ALTERED: Fallopian tubes COMPLICATIONS: None ESTIMATED BLOOD LOSS: 20 cc INTRAOPERATIVE FINDINGS: Normal female pelvis PROCEDURE: Patient was taken to the OR and placed in supine position. General anesthesia was induced. She was placed in the dorsolithotomy position using Pako stirrups. Her perineum abdomen and vagina were prepared and draped in a sterile fashion. She had voided previously so a catheter was not needed. A sponge stick was placed in the vagina for manipulation of the uterus. An incision was made at the umbilicus and the natural umbilical defect was identified and dilated using a Kerrie clamp allowing a blunt port to be placed. Laparoscopy confirmed appropriate placement. Each fallopian tube was identified and followed out to its fimbriated end and a Filshie clip was then placed at the mid isthmic portion of each tube. Photos were taken. The laparoscope was removed along with the port and the gas was allowed to escape from the abdomen. The fascia at the umbilicus was closed with a 2-0 dyed Vicryl stitch. The skin was closed with a 4-0 undyed Vicryl suture in a running fashion. Hemostasis was good. Patient was extubated and taken to recovery room in stable condition. The sponge stick was removed from the vagina prior to extubating the patient.
[2017-03-03] MEDS ORDERED: KETOROLAC TROMETHAMINE INJ/PF 30 MG/1 ML SDV IV PRN (10:06)
[2017-03-03] MEDS ORDERED: RINGERS SOLUTION,LACTATED 1,000 ML IV PRN (10:06)
[2017-03-03] MEDS ORDERED: IBUPROFEN 800 MG TABLET PO PRN (10:07)
[2017-03-03] MEDS ORDERED: FENTANYL CITRATE INJ/PF 100 MCG/2 ML AMPUL ONE (10:18)
[2017-03-03] MEDS ORDERED: PROMETHAZINE HCL INJ 25 MG/1 ML VIAL ONE (10:48)
[2017-03-03] MEDS ORDERED: KETOROLAC TROMETHAMINE INJ/PF 30 MG/1 ML SDV ONE (11:08)
[2017-03-03] MEDS ORDERED: ONDANSETRON HCL INJ/PF 4 MG/2 ML SDV ONE ×2 (11:59→12:35)
[2017-03-03] MEDS ORDERED: GLYCOPYRROLATE INJ 0.4 MG/2 ML VIAL ONE (12:35)
[2017-03-03] MEDS ORDERED: NEOSTIGMINE METHYLSULFATE 10 MG/10 ML VIAL ONE (12:35)
[2017-03-03] MEDS ORDERED: LIDOCAINE 2% INJ-PF (20 MG/ML) 10 ML AMPUL ONE (12:35)
[2017-03-03] MEDS ORDERED: SUCCINYLCHOLINE CHLORIDE INJ 200 MG/10 ML VIAL ONE (12:35)
[2017-03-03] MEDS ORDERED: ROCURONIUM BROMIDE INJ 50 MG/5 ML VIAL IV ONE (12:35)
[2017-03-03] MEDS ORDERED: DEXAMETHASONE SOD PHOSPHATE INJ 4 MG/1 ML VIAL ONE (12:35)
[2017-03-03] MEDS ORDERED: METOCLOPRAMIDE HCL INJ/PF 10 MG/2 ML SDV ONE (12:35)
[2017-03-03 16:40] VITALS: BP 127/81
== END 2017-03-03 12:45 | disposition home or self-care (01) ==
LOC: OROUT 07:07
PROVIDERS: ATTEND Obstetrics & Gynecology
PROC: 0UB74ZZ Excision of Bilateral Fallopian Tubes, Percutaneous Endoscopic Approach (ICD-10-PCS; principal; 2017-03-03 09:00)
DX: Z30.2 Encounter for sterilization (principal); D64.9 Anemia, unspecified; E66.9 Obesity, unspecified; D57.3 Sickle-cell trait; Z79.899 Other long term (current) drug therapy; Z68.35 Body mass index [BMI] 35.0-35.9, adult
CPT/HCPCS: 36415; 85027; 81005; 81025; 58671; J2250; J3490 ×3; J1100; J3010; J1885; J2765; J1170; J2550; J0330; J2405; J2704; J1741; 851

== ENCOUNTER 2017-10-21 09:32 | Emergency (ER) | payer MEDICAID ==
[2017-10-21] MEDS ORDERED: NORMAL SALINE 1000 ML 1,000 ML IV ONE (11:22)
[2017-10-21] MEDS ORDERED: PROCHLORPERAZINE EDISYLATE INJ 10 MG/2 ML VIAL IV ONE (11:22)
[2017-10-21] MEDS ORDERED: KETOROLAC TROMETHAMINE INJ/PF 30 MG/1 ML SDV IV ONE (11:22)
[2017-10-21 11:27] LABS: ABSOLUTE LYMPHOCYTES (AUTO) 1.8 10^3/uL (0.5-4.7); ABSOLUTE MONOCYTES (AUTO) 0.4 10^3/uL (0.1-1.4); BASOPHILS % (AUTO) 0.7 % (0-2); EOSINOPHILS % (AUTO) 0.7 % (0-6); HEMATOCRIT 32.3 % (36.0-47.0); HEMOGLOBIN 10.4 g/dL (12.0-15.5); LYMPHOCYTES % (AUTO) 33.9 % (13-45); MEAN CORPUSCULAR HEMOGLOBIN 27.2 pg (27.0-33.4); MEAN CORPUSCULAR HGB CONC 32.4 g/dL (32.0-36.0); MEAN CORPUSCULAR VOLUME 84 fl (80-97); MONOCYTES % (AUTO) 7.6 % (3-13); PLATELET COUNT 301 10^3/uL (150-450); RED BLOOD COUNT 3.85 10^6/uL (3.72-5.28); RED CELL DISTRIBUTION WIDTH 16.1 % (11.5-14.0); SEGMENTED NEUTROPHILS % (AUTO) 57.1 % (42-78); TOTAL CELLS COUNTED % (AUTO) 100 %; WHITE BLOOD COUNT 5.3 10^3/uL (4.0-10.5)
[2017-10-21 11:37] LABS: ALANINE AMINOTRANSFERASE 17 U/L (9-52); ALKALINE PHOSPHATASE 105 U/L (38-126); ANION GAP 11 (5-19); ASPARTATE AMINO TRANSFERASE 14 U/L (14-36); BILIRUBIN,DIRECT 0.3 mg/dL (0.0-0.4); BILIRUBIN,TOTAL 0.7 mg/dL (0.2-1.3); BLOOD UREA NITROGEN 8 mg/dL (7-20); CALCIUM 9.4 mg/dL (8.4-10.2); CARBON DIOXIDE 27 mmol/L (22-30); CHLORIDE 107 mmol/L (98-107); GLUCOSE 89 mg/dL (75-110); POTASSIUM 4.2 mmol/L (3.6-5.0); SODIUM 144.5 mmol/L (137-145); TOTAL PROTEIN 7.6 g/dL (6.3-8.2)
[2017-10-21 11:51] LABS: APPEARANCE,URINE SLIGHTLY-CLOUDY; BILIRUBIN,URINE NEGATIVE (NEGATIVE); COLOR,URINE YELLOW; GLUCOSE, URINE NEGATIVE (NEGATIVE); KETONES,URINE NEGATIVE (NEGATIVE); LEUKOCYTE ESTERASE,URINE TRACE (NEGATIVE); NITRITE,URINE NEGATIVE (NEGATIVE); PROTEIN,URINE NEGATIVE (NEGATIVE); URINE SPECIFIC GRAVITY 1.021
[2017-10-21 12:03] LABS: ABSOLUTE RETICS # 0.045 10^6/uL (0.028-0.122); RETICULOCYTE COUNT (AUTO) 1.16 % (0.66-2.85)
[2017-10-21] MEDS ORDERED: CEFTRIAXONE INJ 1000 MG VIAL IV ONE (12:19)
[2017-10-21 12:30] LABS: IRON(TIBC) 49.2 ug/dL (37-170)
[2017-10-21 13:37] LABS: FOLATE 6.16 ng/mL (>2.76)
--- NOTE | 2017-10-21 14:39 | ER Document Report ---
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 Patient has a history of migraines, states that she has been taking ibuprofen for the headache which has not helped. Patient also admits to bone pain all over her body and chunks of her teeth falling out. Patient has not seen a dentist or primary care provider for this but did go to the [facility] office yesterday, stating that when they checked her iron they looked at her saying "you should go get checked out, that is really low." Patient has not had an iron transfusion in over a year because she has not been following up on her iron. TRAVEL OUTSIDE OF THE [place] IN LAST 30 DAYS: No - Related Data Allergies/Adverse Reactions: No Known Allergies Allergy (Verified 10/21/17 11:31) Past Medical History - General Information source: Patient - Social History Smoking Status: Never Smoker Chew tobacco use (# tins/day): No Frequency of alcohol use: None Drug Abuse: None Family History: Reviewed & Not Pertinent Patient has suicidal ideation: No Patient has homicidal ideation: No - Past Medical History Cardiac Medical History: Denies: Hx Coronary Artery Disease, Hx Heart Attack, Hx Hypertension Pulmonary Medical History: Denies: Hx Asthma, Hx Bronchitis, Hx COPD, Hx Pneumonia Neurological Medical History: Reports: Hx Migraine. Denies: Hx Cerebrovascular Accident, Hx Seizures Renal/ Medical History: Denies: Hx Peritoneal Dialysis Musculoskeltal Medical History: Denies Hx Arthritis Psychiatric Medical History: Reports: Hx Depression - Immunizations Hx Diphtheria, Pertussis, Tetanus Vaccination: Yes Hx Pneumococcal Vaccination: 08/12/11 Review of Systems - Review of Systems Constitutional: No symptoms reported EENT: No symptoms reported Cardiovascular: No symptoms reported Respiratory: No symptoms reported Gastrointestinal: No symptoms reported Genitourinary: No symptoms reported Female Genitourinary: No symptoms reported Musculoskeletal: No symptoms reported Skin: No symptoms reported Hematologic/Lymphatic: See HPI Neurological/Psychological: See HPI Physical Exam - Vital signs Vitals: Temp Pulse Resp BP Pulse Ox 98.9 F 71 16 122/71 99 10/21/17 09:48 10/21/17 09:48 10/21/17 09:48 10/21/17 09:48 10/21/17 09:48 - Notes Notes: PHYSICAL EXAMINATION: GENERAL: Laying in a dark room, in no acute distress. HEAD: Atraumatic, normocephalic. EYES: Pupils equal round and reactive to light, extraocular movements intact, sclera anicteric, conjunctiva are normal. NECK: Normal range of motion, supple without lymphadenopathy LUNGS: CTAB and equal. No wheezes rales or rhonchi. HEART: Regular rate and rhythm without murmurs ABDOMEN: Soft, no tenderness. No guarding, no rebound BACK: no vertebral tenderness, normal ROM GI/: no CVA tenderness EXTREMITIES: Normal range of motion, no pitting edema. No cyanosis. NEUROLOGICAL: Cranial nerves grossly intact. Normal sensory/motor exams. PSYCH: Normal mood, normal affect. SKIN: Warm, Dry, normal turgor, no rashes or lesions noted Course - Re-evaluation Re-evalutation: 10/21/17 18:20 iron normal, hgb 10.8, pt feels much better after migraine cocktail. - Vital Signs Vital signs: Temp Pulse Resp BP Pulse Ox 98.0 F 89 16 135/72 H 100 10/21/17 14:48 10/21/17 14:48 10/21/17 14:48 10/21/17 14:48 10/21/17 14:48 - Laboratory Result Diagrams: 10/21/17 10:31 10/21/17 10:31 Laboratory results interpreted by me: 10/21/17 10/21/17 09:38 10:31 Hgb 10.4 L Hct 32.3 L RDW 16.1 H Urine Urobilinogen 2.0 H Ur Leukocyte Esterase TRACE H Urine Ascorbic Acid 20 H Discharge - Discharge Clinical Impression: UTI (urinary tract infection) Qualifiers: Urinary tract infection type: site unspecified Hematuria presence: without hematuria Qualified Code(s): N39.0 - Urinary tract infection, site not specified Condition: Stable Disposition: HOME, SELF-CARE Prescriptions: Cephalexin Monohydrate [Keflex 500 mg Capsule] 500 mg PO BID 7 Days #14 capsule Referrals: MOISES ANGEL DO [Primary Care Provider] - Follow up as needed
[2017-10-21 14:50] VITALS: BP 135/72
== END 2017-10-21 14:48 | disposition home or self-care (01) ==
LOC: ER 09:32
DX: N39.0 Urinary tract infection, site not specified (principal); D58.1 Hereditary elliptocytosis
CPT/HCPCS: 99283; 96361; 96375; 96365; 36415; 82607; 82728; 82746; 83540; 83550; 85025; 81025; 85045; 80053; 81001; J1885; J0780; J0696; J7030